=== PATIENT | female | born 1950 | race Caucasian/White ===

== ENCOUNTER 2025-04-26 12:18 | Outpatient (OUT) | payer MEDICARE, SELFPAY ==
--- OUTSIDE RECORDS SUMMARY | 2025-04-13 13:15 | XMS_ITS | Encounter Summary ---
Author Organization [facility] Address [address] [place] [address] Care Team Providers Care Event Planning Intern Name Role Phone ArielKyle DO Unavailable Demetrice Montgomery DO Unavailable [phone] Mandeep Nj MD Unavailable Riri Benavides MD Unavailable [phone] Felipe Lopez UNIT MA[employer]GER [employer] Unavailable Johnny Field DO Unavailable Tico Morley MD Primary Care Provider [phone] Reason for Visit * Reason Comments Gynecologic Exam Patient here for delroy araya. Denies any problems at this time. History of left breast cancer. Completed breast MRI in December- that was negative. Completed Dexa scan 03/25/24 moderate osteopenia. Colonoscopy 2016 Encounter Details Date Type Department Care Team (Late st Contact Info) Description 04/13/2025 1:15 PM EDT Office Visit [facility] [address] [address] [phone] Demetrice Montgomery DO [address] [phone] Encounter for gynecological examination (general) (routine) with abnormal findings (Primary Dx); Cystocele, midline; Osteopenia, unspecified location; Screening breast examination; History of breast cancer; Hx of hysterectomy for benign disease Social History Tobacco Use Types Packs/Day Years Used Date Smoking Tobacco: Former Cigarettes 0 09/02/1974 - 09/02/2018 Passive Smoke Exposure: Past Smokeless Tobacco: Never Comments:Last smoked : 3-[address] [facility] Moderate cigarette smoker 10-19 cigs / day Alcohol Use Standard Drinks/Week Comments Yes 2 (1 standard drink = 0.6 oz pure alcohol) caffeine intake: 2-3 cups per day ; tea 2 glasses AUDIT-C Answer Date Recorded Q1: How often do you have a drink containing alc ohol? 2-4 times a month 03/18/2024 Q2: How many drinks containi ng alcohol do you have on a typical day when you are drinking? 1 or 2 03/18/2024 Q3: How often do you have si x or more drinks on one occasion? Never 03/18/2024 PHQ-2 Answer Date Recorded Patient Health Questionnaire-2 Score 2 06/01/2024 Comments No Sex and Gender Information Value Date Recorded Sex Assigned at Not on file Legal Sex Female 7:34 PM EDT Gender Identity Not on file Sexual Orientation Not on file Occupation Industry Job Start Date Job End Date retired Not on file Not on file Not on file documented as of this encounter Last Filed Vital Signs Vital Sign Reading Time Taken Comments Blood Pressure 130/76 04/13/2025 1:10 PM EDT Pulse - - Temperature - - Respiratory Rate - - Oxygen Saturation - - Inhaled Oxygen Concentration - - Weight 79.8 kg (176 lb) 04/13/2025 1:10 PM EDT Height - - Body Mass Index 31.18 03/02/2025 10:41 AM EDT documented in this encounter Progress Notes * Demetrice Montgomery DO - 04/13/2025 1:15 PM EDT Images from the original note were not included. Demetrice Montgomery DO Obstetrics and Gynecology Name: Kinjal Penaloza Date/Time of Service:04/13/2025 1:49 PM :1950 Age: 74 y.o. Subjective Kinjal Penaloza is a 74 y.o. female who is here for a routine exam. Gynecologic Exam (Patient here for yearly. Denies any problems at this time. History of left breastcancer. Completed breast MRI in December- that was negative. Completed Dexa scan 03/25/24 moderate osteopenia. Colonoscopy 2016) Control Contraception: status post hysterectomy. LMP: No LMP recorded. Patient has had a hysterectomy. Last Mammogram Results for orders placed in visit on 07/02/24 Bilateral screening mammogram with tomosynthesis [facility] [address] [place] [address] Mammography Report Signed Patient: Kinjal Penaloza MR#: [id number] : 1950 Acct:[id number] Age/Sex: 74 / F ADM Date: 07/01/23 Loc: XT Room: Type: [facility]CR Attending Dr: Nikki Brunner MD Copies to: MD Riri Liang MD Jeffrey A Garman, Ordering Provider: Nikki Brunner MD Date of Service: 07/02/24 MM/MM screening mammo BI w/CAD: Hx of left breast cancer CLINICAL DATA: Screening for malignancy. History of left breast cancer. BILATERAL SCREENING MAMMOGRAMS - FULL FIELD DIGITAL WITH TOMOSYNTHESIS AND CAD Tomosynthesis craniocaudal and mediolateral oblique views of both breasts were obtained using low- dose digital technique. Comparison is made to prior studies from May 10, 2020 through July 01, 2023. This examination was reviewed with the aid of CAD. There are scattered fibroglandular densities. Postoperative scarring with BioZorb is again visualized at the central left breast at middle to posterior depth. There is associated calcification suggesting oil cyst. Additional benign calcifications are seen. There are no developing masses, typically malignant calcifications or architectural distortion. There has been no significant interval change. MM/MM screening mammo BI w/CAD Impression NO MAMMOGRAPHIC EVIDENCE OF MALIGNANCY. ROUTINE FOLLOW-UP IS RECOMMENDED IN ONE YEAR. RESULT CODE: 2 Benign Findings(s) DENSITY CODE: 2 (approximately 25-50% glandular) FOLLOW UP: 1YR The false-negative rate of mammography is approximately 10-percent. Management of a palpable abnormality must be based on clinical grounds. Patient was entered into a reminder system with a target due date for the next mammogram. Impression dictated by: Lakeshia Benítez M.D.07/02/2024 3:00 PM Dictation Location: [id number] Transcribed By: PWS 07/02/24 1500 Dictated By: Lakeshia Benítez MD 07/02/24 1454 Signed By: <Electronically signed by MD Lakeshia Benítez in OV> 07/02/24 1500 Current Outpatient Medications on File Prior to Visit Medication Sig Dispense Refill alendronate (Fosamax) 70 MG tablet 1 tablet Orally once a week, sit upright for 30 minutes after taking. 12 tablet 1 allopurinol (Zyloprim) 100 MG tablet Take 1 tablet (100 mg) by mouth Daily 90 tablet 1 atorvastatin (Lipitor) 20 MG tablet 1 tablet Orally at nite for 90 days 90 tablet 1 cholecalciferol (Vitamin D-3) 25 MCG (1000 UT) capsule Take 1,000 Units by mouth Daily Cyanocobalamin (Vitamin B12) 1000 MCG tablet controlled-release 1 (one) time each day at the same time fluocinonide (Lidex) 0.05 % external solution Apply to affected areas on the scalp, up to twice a day when flared, 30 day supply 60 mL 11 levothyroxine (Synthroid, Levoxyl) 50 MCG tablet 1 tablet Orally in am for 90 days 90 tablet 1 potassium bicarbonate (Effer-K) 25 MEQ effervescent tablet Take 1 tablet (25 mEq) by mouth every 12(twelve) hours 180 tablet 1 tamoxifen (Nolvadex) 20 MG chemo tablet 1 (one) time each day at the same time. venlafaxine (Effexor) 75 MG tablet Take 1 tablet (75 mg) by mouth 1 (one) time each day at the sametime 90 tablet 1 No current facility-administered medications on file prior to visit. Past Medical History: Diagnosis Date Adnexal mass 04/29/2023 Arthritis Basal cell carcinoma nasal tip Benign neoplasm of the colon requiring colectomy Breast cancer (HCC) left breast cancer (ER+/VT Her2 neg) Cataracts, bilateral Chicken pox COVID-19 06/2020 Female cystocele 03/01/2023 History of left breast cancer HLD (hyperlipidemia) 05/10/2023 Hx of hernia Hyperlipidemia Kidney stones Left breast mass 03/01/2023 Measles Mumps Post-op pain 05/22/2023 (HHS-HCC) 2 full term Preop examination 06/26/2023 Rheumatic fever Rheumatic heart disease S/P breast lumpectomy Stress fracture left knee Tonsillitis Vaginal infection Past Surgical History: Procedure Laterality Date APPENDECTOMY BILATERAL OOPHORECTOMY 2022 BREAST BIOPSY Left 12/2018 BREAST LUMPECTOMY Left 12/2018 CHOLECYSTECTOMY COLECTOMY 1998 [facility] COLONOSCOPY 2016 COLONOSCOPY 08/27/2014 dx 2 polyps COLONOSCOPY 06/07/2022 PCL HERNIA REPAIR umbilical hernia HYSTERECTOMY 1986 [facility]/BS KNEE ARTHROSCOPY W/ ACL RECONSTRUCTION Right 2016 KNEE ARTHROSCOPY W/ ACL RECONSTRUCTION Left 2020 MENISCECTOMY TONSILLECTOMY 195 Family History Problem Relation Name Age of Onset Pneumonia Mother Heart attack Father DOD Heart disease Father DOD Arthritis Father DOD Heart disease Brother Bro Sleep apnea Son Melanoma Neg Hx Social History Tobacco Use Smoking status: Former Current packs/day: 0.00 Types: Cigarettes Start date: 09/02/1974 Quit date: 09/02/2018 Years since quittin.6 Passive exposure: Past Smokeless tobacco: Never Tobacco comments: Last smoked : 3-6 months Moderate cigarette smoker 10-19 cigs / day Vaping Use Vaping status: Never Used Substance Use Topics Alcohol use: Yes Alcohol/week: 2.0 standard drinks of alcohol Types: 2 Glasses of wine per week Comment: caffeine intake: 2-3 cups per day ; tea 2 glasses Drug use: Never OB History Para Term AB Living 2 2 2 0 0 2 SAB IAB Ectopic Multiple Live Births # Outcome Date GA Lbr Isak/2nd Weight Sex Type Anes PTL Lv 2 Term 1 Term Allergies Allergen Reactions Sulfa Antibiotics Unknown and Rash Review of Systems Constitutional: Negative. Respiratory: Negative. Cardiovascular: Negative. Gastrointestinal: Negative. Musculoskeletal: Negative. Skin: Negative. Neurological: Negative. Endocrine: Negative. Objective BP 130/76 Wt 176 lb BMI 31.18 kg/m?? Body mass index is 31.18 kg/m??. Physical Exam Genitourinary: Urethral meatus normal. No lesions in the vagina. Genitourinary Comments: Valsalva revealed stage I-II cystocele Right Labia: No lesions. Left Labia: No lesions. Vaginal cuff intact. No vaginal discharge. Anterior vaginal prolapse present. Moderate vaginal atrophy present. Right Adnexa: not tender and no mass present. Left Adnexa: not tender and no mass present. Cervix is absent. Uterus is absent. No urethral stress urinary incontinence with cough stress test present. Bladder is not tender. Rectum: No rectovaginal septum nodularity. Breasts: Right: No mass, nipple discharge, skin change or tenderness. Left: No mass, nipple discharge, skin change or tenderness. HENT: Head: Normocephalic and atraumatic. Mouth/Throat: Mouth: Mucous membranes are moist. Cardiovascular: Rate and Rhythm: Normal rate and regular rhythm. Pulmonary: Effort: Pulmonary effort is normal. Breath sounds: Normal breath sounds. Abdominal: General: Bowel sounds are normal. Palpations: Abdomen is soft. Musculoskeletal: General: No tenderness. Cervical back: Neck supple. Neurological: Mental Status: She is alert and oriented to person, place, and time. Skin: General: Skin is warm and dry. Psychiatric: Mood and Affect: Mood normal. Vitals and nursing note reviewed. Assessment/Plan 1. Encounter for gynecological examination (general) (routine) with abnormal findings (Primary) Breast and pelvic exam performed. Discussed findings. Patient to contact the office with any changes to her gynecological condition. 2. Cystocele, midline Discussed findings, stable, continue to monitor. Stressed the importance of complete bladder emptying and avoiding long periods between voiding. Patient voiced understanding 3. Osteopenia, unspecified location Continue current treatment. Repeat DEXA scan next year 4. Screening breast examination Breast MRI completed recently with normal/benign findings 5. History of breast cancer 6. Hx of hysterectomy for benign disease ICD-10-CM 1. Encounter for gynecological examination (general) (routine) with abnormal findings Z01.411 2. Cystocele, midline N81.11 3. Osteopenia, unspecified location M85.80 4. Screening breast examination Z12.39 5. History of breast cancer Z85.3 6. Hx of hysterectomy for benign disease Z90.710 Follow up in about 1 year (around 04/13/2026) for Yearly. Demetrice Montgomery DO 04/13/2025 1:49 PM documented in this encounter Plan of Treatment Upcoming Encounters Date Type Department Care Team (Late st Contact Info) Description 05/12/2025 3:15 PM EDT Office Visit [facility] [address] [place] [phone] Deb Dwyer MD [address] [place] [address] 09/14/2025 1:15 PM EST Office Visit [facility] [address] [place] [phone] 12/28/2025 10:00 AM EDT Clinical Support [facility] [address] [place] [phone] Luann Gross, [facility] [address] [place] [address] 12/31/2025 10:00 AM EDT Office Visit [facility] [address] [place] [phone] Johnny Field DO [address] [place] [address] 04/18/2026 1:15 PM EDT Office Visit [facility] [address] [phone] Demetrice Montgomery DO [address] [phone] documented as of this encounter Visit Diagnoses Diagnosis Encounter for gynecological examination (general) (routine) with abnormal findings- Primary Cystocele, midline Osteopenia, unspecified location Screening breast examination Other screening breast examination History of breast cancer Personal history of malignant neoplasm of breast Hx of hysterectomy for benign disease documented in this encounter Care Teams Event Planning Intern Relationship Specialty Start Date End Date Kyle George DO [address] [place] [address] PCP - [employer] 09/02/22 Tico Morley MD [address] [place] [address] PCP - General Internal Medicine 04/01/25 Demetrice Montgomery DO [address] [place] [address] Referring Physician Obstetrics and Gynecology 04/30/23 Mandeep Nj MD [address] [place] [address] Referring Physician Ophthalmology 04/30/23 RIRI BENAVIDSE [address] [place] [address] Referring Physician General Surgery 04/30/23 Felipe Lopez NP [address] [place] [address] Referring Physician Internal Medicine 12/28/24 Johnny Field DO [address] [place] [address] Otolaryngology 12/28/24 documented as of this encounter
--- OUTSIDE RECORDS SUMMARY | 2025-04-23 23:59 | XMS_ITS | Continuity of Care Document ---
Author Organization [facility] Address [address] [place] [address] Care Team Providers Care Payroll And Benefits Specialist Name Role Phone ROBE LADD Primary Care Physician Encounter FT_ROSEANNE [id number] Date(s): 04/23/25 - 04/23/25 [facility] [address] [place] [address]- Encounter Diagnosis Kidney stones(Discharge Diagnosis) - 04/23/25 Abnormal urinalysis(Discharge Diagnosis) - 04/23/25 History of kidney stones(Discharge Diagnosis) - 04/23/25 Right flank pain(Discharge Diagnosis) - 04/23/25 Discharge Disposition: Home (Routine DC) Attending Physician: Adria WALLACE, Zhane Conway Referring Physician: ROBE LADD MD Encounter Type: Clinic Allergies, Adverse Reactions, Alerts Substance Criticality Severity Reaction Reaction Severity Status sulfa drugs Unknown Active Immunizations Given and Recorded Vaccine Date Status Refusal Reason influenza virus vaccine, inactivated 06/02/24 Edmond rded influenza virus vaccine, inactivated 06/19/23 Edmond rded influenza virus vaccine, inactivated 06/11/22 Edmond rded influenza virus vaccine, inactivated 05/29/21 Edmond rded influenza virus vaccine, inactivated 05/27/20 Edmond rded influenza virus vaccine, inactivated 05/22/17 Edmond rded influenza virus vaccine, inactivated 08/08/16 Edmond rded influenza virus vaccine, inactivated 07/04/15 Edmond rded RSV vaccine preF3, recombinant 08/09/23 Recorded SARS-CoV-2 (COVID-19) [id number] 07/06/22 Recorded SARS-CoV-2 (COVID-19) mRNA-1273 vaccine 01/01/22 R ecorded SARS-CoV-2 (COVID-19) mRNA-1273 vaccine 06/27/21 R ecorded SARS-CoV-2 (COVID-19) mRNA-1273 vaccine 11/24/20 R ecorded SARS-CoV-2 (COVID-19) mRNA-1273 vaccine 10/27/20 R ecorded diphtheria/pertussis, acel/tetanus adult 01/17/21 Recorded diphtheria/pertussis, acel/tetanus adult 07/18/11 Recorded zoster vaccine, inactivated 10/17/19 Recorded zoster vaccine, inactivated 07/07/19 Recorded pneumococcal 23-valent vaccine 08/09/16 Recorded pneumococcal 13-valent vaccine 08/15/15 Recorded influenza, unspecified formulation 06/22/15 Record ed Medications alendronate 70 mg Tab 70 mg = 1 tab(s), Oral, qWeek Start Date: 04/23/25 Status: Ordered Repeat number: 1 allopurinol 100 mg Tab 100 mg = 1 tab(s), Oral, Daily Start Date: 04/23/25 Status: Ordered Repeat number: 1 atorvastatin 20 mg Tab 20 mg = 1 tab(s), Oral, Daily Start Date: 04/23/25 Status: Ordered Repeat number: 1 fluocinonide topical 0.05% solution Start Date: 04/23/25 Status: Ordered Repeat number: 1 K-Lyte 25 mEq Tab-Eff 25 mEq = 1 tab(s), Oral, q12hr Start Date: 04/23/25 Status: Ordered Repeat number: 1 Synthroid 75 mcg Tab 75 mcg = 1 tab(s), Oral, Daily Start Date: 04/23/25 Status: Ordered Repeat number: 1 tamoxifen 20 mg Tab 20 mg = 1 tab(s), Oral, Daily Start Date: 04/23/25 Status: Ordered Repeat number: 1 venlafaxine 75 mg Cap-ER 75 mg = 1 cap(s), Oral, Daily Start Date: 04/23/25 Status: Ordered Repeat number: 1 Vitamin B12 Refills(s) 0 Start Date: 04/23/25 Status: Ordered Repeat number: 1 Vitamin D3 Refills(s) 0 Start Date: 04/23/25 Status: Ordered Repeat number: 1 Problem List Condition Confirmation Course Effective Dates Status Health St atus Informant Abnormal urinalysis Confirmed Active Arthritis Confirmed Active Glaucoma Confirmed Active Heart murmur Confirmed Active History of kidney stones Confirmed Active Hyperlipemia Confirmed Active Hypothyroid Confirmed Active Kidney stones Confirmed Active Breast cancer Confirmed Active Right flank pain Confirmed Active Procedures Procedure Date Related Diagnosis Body Site Status Appendectomy Completed Breast surgery Completed Cataract extraction Compl eted Cholecystectomy Completed Hysterectomy Completed Tonsillectomy Completed Social History Social History Type Response Smoking Status Former smoker, quit more than 30 days ago;Never; Type: Cigarettes entered on: 04/23/25 Sex Female Sex Representation Female (finding) Hospital Discharge Instructions Patient Education 04/23/2025 14:08:16 Laser Therapy for Kidney Stones, Care After Laser Therapy for Kidney Stones, Care After After laser therapy for kidney stones, it is common to have: ??? Pain. ??? A burning feeling when you pee (urinate). ??? Small amounts of blood in your pee (urine). ??? A need to pee a lot. ??? Parts of the kidney stone in your pee. ??? Mild discomfort in your back when you pee. You may have this if you had a small mesh tube (stent) placed during the procedure. Follow these instructions at home: Medicines ??? Take lbgc-sgu-ktdwagr and prescription medicines only as told by your health care provider. ??? If you were prescribed antibiotics, take them as told by your provider. Do not stop using the antibiotic even if you start to feel better. ??? Ask your provider if the medicine prescribed to you: ??? Requires you to avoid driving or using machinery. ??? Can cause constipation. You may need to take these actions to prevent or treat constipation: ??? Drink enough fluid to keep your pee pale yellow. ??? Take czyi-qag-nqsoltd or prescription medicines. ??? Eat foods that are high in fiber, such as beans, whole grains, and fresh fruits and vegetables. ??? Limit foods that are high in fat and processed sugars, such as fried or sweet foods. Activity ??? If you were given a sedative during the procedure, it can affect you for several hours. Do not drive or operate machinery until your provider says that it is safe. ??? Return to your normal activities as told by your provider. Ask your provider what activities are safe for you. General instructions ??? Your provider may recommend that you drink a lot of water for a few hours after your procedure.If you have heart or kidney disease, ask your provider how much you should drink. ??? You may be asked to strain your pee to collect any stone pieces that you pass. Your provider may have these pieces tested. ??? Do not take baths, swim, or use a hot tub until your provider approves. Ask your provider if you may take warm baths to soothe the burning. ??? Keep all follow-up visits. If you have a stent, you will need to go back to your provider to have it removed. Your provider may give you more instructions. Make sure you know what you can and cannot do. Contact a health care provider if: ??? You have pain or a burning feeling that lasts for more than 2 days. ??? You feel nauseous. ??? You vomit more and more often. ??? You have trouble peeing. ??? You have pain that gets worse or does not get better with medicine. ??? You have a fever or shaking chills. Get help right away if: ??? You cannot pee, even when your bladder feels full. ??? You faint. ??? You have chest pain, shortness of breath, or cough up blood. ??? You have: ??? Bright red blood or blood clots in your pee. ??? Severe pain or discomfort. ??? Pain in your abdomen. ??? Swelling in your legs. These symptoms may be an emergency. Get help right away. Call 911. ??? Do not wait to see if the symptoms will go away. ??? Do not drive yourself to the hospital. This information is not intended to replace advice given to you by your health care provider. Make sure you discuss any questions you have with your health care provider. Document Revised: 04/19/2023 Document Reviewed: 04/19/2023 [employer] Patient Education ?? 2023 [employer] 04/23/2025 14:08:15 Laser Therapy for Kidney Stones Laser Therapy for Kidney Stones Laser therapy for kidney stones is a procedure to break up rock-like masses that form inside the kidneys (kidney stones). It is done using a device that beams a strong light (laser) on the kidney stones. This breaks the stones up into small pieces. These small pieces may leave your body when you pee (urinate) or may be taken out during the procedure. You may need laser therapy if you have kidney stones that are painful or that are stopping you frombeing able to pee. Tell a health care provider about: ??? Any allergies you have. ??? All medicines you are taking, including vitamins, herbs, eye drops, creams, and lwks-swz-uelgtnz medicines. ??? Any problems you or family members have had with anesthesia. ??? Any bleeding problems you have. ??? Any surgeries you have had. ??? Any medical conditions you have. ??? Whether you are or may be . What are the risks? Your health care provider will talk with you about risks. These may include: ??? Infection. ??? Bleeding. ??? Allergic reactions to medicines. ??? Damage to: ??? The part of your body that drains pee (urine) from the bladder (urethra). ??? The bladder. ??? The tube that connects the bladder to the kidneys (ureter). ??? Urinary tract infection (UTI). ??? Urethral stricture. This is when the urethra is narrowed by scarring. ??? Trouble peeing. ??? Blockage of the kidney. This may be caused by a piece of kidney stone. What happens before the procedure? When to stop eating and drinking Follow instructions from your provider about what you may eat and drink. These may include: ??? 8 hours before the procedure ??? Stop eating most foods. Do not eat meat, fried foods, or fatty foods. ??? Eat only light foods, such as toast or crackers. ??? All liquids are okay except energy drinks and alcohol. ??? 6 hours before the procedure ??? Stop eating. ??? Drink only clear liquids, such as water, clear fruit juice, black coffee, plain tea, and sportsdrinks. ??? Do not drink energy drinks or alcohol. ??? 2 hours before the procedure ??? Stop drinking all liquids. ??? You may be allowed to take medicines with small sips of water. ??? If you do not follow your provider's instructions, your procedure may be delayed or canceled. Medicines ??? Ask your provider about: ??? Changing or stopping your regular medicines. These include any diabetes medicines or blood thinners you take. ??? Taking medicines such as aspirin and ibuprofen. These medicines can thin your blood. Do not take them unless your provider tells you to. ??? Taking lnqv-rwe-qeqwuom medicines, vitamins, herbs, and supplements. Tests ??? You may have a physical exam before the procedure. You may also have tests done. These may include: ??? Imaging tests. ??? Blood or pee tests. Surgery safety ??? Ask your provider: ??? How your surgery site will be marked. ??? What steps will be taken to help prevent infection. These steps may include: ??? Removing hair at the surgery site. ??? Washing skin with a soap that kills germs. ??? Taking antibiotics. General instructions ??? Do not use any products that contain nicotine or tobacco for at least 4 weeks before the procedure. These products include cigarettes, chewing tobacco, and vaping devices, such as e-cigarettes. If you need help quitting, ask your provider. ??? If you will be going home right after the procedure, plan to have a responsible adult: ??? Take you home from the hospital or clinic. You will not be allowed to drive. ??? Care for you for the time you are told. What happens during the procedure? An IV will be inserted into one of your veins. ??? You will be given: ??? A sedative. This helps you relax. ??? Anesthesia. This keeps you from feeling pain. It will make you fall asleep for surgery. ??? A tool with a camera on the end (ureteroscope) will be put into your urethra. It will be moved through your bladder to your kidney. It will send pictures to a screen in the operating room. This will show what parts of your kidney need to be treated. ??? A tube will be put through the ureteroscope. It will be moved into your kidney. ??? The laser device will be put into your kidney through the tube. The laser will be used to breakup the kidney stones. ??? A tool with a tiny wire basket may be put through the tube into your kidney. This can help remove the small pieces of the kidney stone. ??? A small mesh tube (stent) may be placed to allow your kidney to drain. ??? The tube and ureteroscope will be taken out at the end of the surgery. The procedure may vary among providers and hospitals. What happens after the procedure? Your blood pressure, heart rate, breathing rate, and blood oxygen level will be monitored untilyou leave the hospital or clinic. ??? If you had a stent placed, it may have a string that will be secured to your skin. This helps your provider remove the stent. ??? You may be given a strainer to collect any stone pieces that you pass in your pee. Your provider may have these tested. This information is not intended to replace advice given to you by your health care provider. Make sure you discuss any questions you have with your health care provider. Document Revised: 04/19/2023 Document Reviewed: 04/19/2023 [employer] Patient Education ?? 2023 [employer]. Follow Up Care 04/09/2025 14:55:41 With:Adria WALLACE, FITZ Avendano, KARRI Address: When: Unknown Patient Care team information Care Team Personnel Name: ROBE LADD MD Position: FT Physician Member Role: Primary Care Physician Address: [address] [place] [address]- Telecom: Care Team Related Persons Name: JAYLA BLOOM Name: JAYLA BLOOM Insurance Providers Guarantor name: Health Plan Information #: 1 Payer: [employer] Payer Identifier: [id number] Member Number: [id number] Group Number: [id number] Subscriber Identifier: [id number] Relationship to Subscriber: Self Coverage Type: MEDICARE Coverage Verification Date: 25 Telecom: [phone] Address: [facility] [id number] [place] [id number] [place] [address]
--- OUTSIDE RECORDS SUMMARY | 2025-04-26 12:23 | XMS_ITS | Encounter Summary ---
Author Organization [facility] Address [address] [place] [address] Care Team Providers Care Hard Candy Spinner Name Role Phone ArielKyle DO Unavailable [phone] Demetrice Montgomery DO Unavailable [phone] Mandeep Nj MD Unavailable Riri Benavides MD Unavailable [phone] Felipe Lopez SENIOR MEDICAL DIRECTOR Unavailable [phone] Johnny Field DO Unavailable [phone] Tico Morley MD Primary Care Provider [phone] Encounter Details Date Type Department Care Team (Latest Contact Info) Description 04/13/2025 Travel Social History Tobacco Use Types Packs/Day Years Used Date Smoking Tobacco: Former Cigarettes 0 09/02/1974 - 09/02/2018 Passive Smoke Exposure: Past Smokeless Tobacco: Never Comments:Last smoked : 3-6 m [facility] Moderate cigarette smoker 10-19 cigs / day [...] on file documented as of this encounter Plan of Treatment Upcoming Encounters Date Type Department Care Team (Late st Contact Info) Description 05/12/2025 3:15 PM EDT Office Visit [facility] [address] [place] [phone] Deb Dwyer MD [address] [place] [address] 09/14/2025 1:15 PM EST Office Visit [facility] [address] [place] [phone] 12/28/2025 10:00 AM EDT Clinical Support [facility] [address] [facility] [place] [phone] Luann Gross, [facility] [address] [address] 12/31/2025 10:00 AM EDT Office Visit [facility] [address] [place] [address] Johnny Field DO [address] [address] 04/18/2026 1:15 PM EDT Office Visit [facility] [address] [phone] Demetrice Montgomery DO [address] [address] documented as of this encounter Visit Diagnoses Not on filedocumented in this encounter Care Teams Hard Candy Spinner Relationship Specialty Start Date End Date Kyle George DO [address] [place] [address] PCP - [employer] 09/02/22 Tico Morley MD [address] [place] [address] PCP - General Internal Medicine 04/01/25 Demetrice Montgomery DO [address] [place] [address] Referring Physician Obstetrics and Gynecology 04/30/23 Mandeep Nj MD [address] [place] [address] Referring Physician Ophthalmology 04/30/23 RIRI BENAVIDES [address] [place] [address] Referring Physician General Surgery 04/30/23 Felipe Lopez SENIOR MEDICAL DIRECTOR [address] [place] [address] Referring Physician Internal Medicine 12/28/24 Johnny Field DO [address] [place] [address] Otolaryngology 12/28/24 documented as of this encounter
--- OUTSIDE RECORDS SUMMARY | 2025-04-26 12:23 | XMS_ITS | Encounter Summary ---
Author Organization [facility] Address [address] [place] [address] Care Team Providers Care Climatology Teacher Name Role Phone Kyle George DO Unavailable [phone] Kyle George DO Primary Care Provider [phone] Kyle George DO Primary Care Provider [phone] Demetrice Montgomery DO Unavailable [phone] Mandeep Nj MD Unavailable Riri Benavides MD Unavailable [phone] Felipe Lopez COMPUTER NETWORKING INSTRUCTOR ADJUNCT Unavailable Johnny Fiedl DO Unavailable Tico Morley MD Primary Care Provider Encounter Details Date Type Department Care Team (Late st Contact Info) Description 11/22/2021 Abstract [facility] [place] [facility] [address] [place] [address] Luann Gross, [facility] [address] [place] [address] Social History Tobacco Use Types Packs/Day Years Used Date Smoking Tobacco: Never Assessed Comments Unknown Sex and Gender Information Value Date Recorded Sex Assigned at Not on file Legal Sex Female 7:34 PM EDT Gender Identity Not on file Sexual Orientation Not on file documented as of this encounter Plan of Treatment Upcoming Encounters Date Type Department Care Team (Late st Contact Info) Description 05/12/2025 3:15 PM EDT Office Visit [facility] [place] [facility] [address] [place] [phone] Deb Dwyer MD [address] [place] [address] 09/14/2025 1:15 PM EST Office Visit [facility] [place] [facility] [address] [place] [phone] 12/28/2025 10:00 AM EDT Clinical Support [facility] [place] [facility] [address] [place] [phone] Luann Gross, [facility] [address] [place] [address] 12/31/2025 10:00 AM EDT Office Visit [facility] [place] [facility] [address] [place] [phone] Johnny Field DO [address] [place] [address] 04/18/2026 1:15 PM EDT Office Visit [facility] [address] [phone] Demetrice Montgomery DO [address] [address] documented as of this encounter Visit Diagnoses Not on filedocumented in this encounter Care Teams Climatology Teacher Relationship Specialty Start Date End Date Kyle George DO [address] [place] [address] PCP - [employer] 09/02/22 Kyle George DO [address] [place] [address] PCP - General Internal Medicine 03/01/23 04/23/23 Kyle George DO [address] [place] [address] PCP - General Internal Medicine 04/24/23 03/31/25 Tico Morley MD [address] [place] [address] PCP - General Internal Medicine 04/01/25 Demetrice Montgomery DO [address] [place] [address] Referring Physician Obstetrics and Gynecology 04/30/23 Mandeep Nj MD [address] [place] [address] Referring Physician Ophthalmology 04/30/23 RIRI [address]NAVIDES [address] [place] [address] Referring Physician General Surgery 04/30/23 Felipe Lopez COMPUTER NETWORKING INSTRUCTOR ADJUNCT [address] [place] [address] Referring Physician Internal Medicine 12/28/24 Johnny Field DO [address] [place] [address] Otolaryngology 12/28/24 documented as of this encounter
--- OUTSIDE RECORDS SUMMARY | 2025-04-26 12:23 | XMS_ITS | Encounter Summary ---
Author Organization [facility] Address [address] [facility] [place] [address] Care Team Providers Care Inspector Radar And Electronics Name Role Phone Kyle George DO Unavailable [phone] Kyle George DO Primary Care Provider Demetrice Montgomery DO Unavailable [phone] Mandeep Nj MD Unavailable Riri Benavides MD Unavailable [phone] Felipe Lopez SIGN SHOP SUPERVISOR Unavailable Johnny Field DO Unavailable [phone] Tioc Morley MD Primary Care Provider [phone] Encounter Details Date Type Department Care Team (Late st Contact Info) Description 07/03/2023 [facility] [address] [facility] [address] [place] [phone] A, Unknown Practice [address] [place] [phone] Social History Tobacco Use Types Packs/Day Years Used Date Smoking Tobacco: Former Cigarettes 0 09/02/1974 - 09/02/2017 Smokeless Tobacco: Never Comments:Last smoked : [facility] Moderate cigarette smoker 10-19 cigs / day Alcohol Use Standard Drinks/Week Comments Yes 1 (1 standard drink = 0.6 oz pure alcohol) caffeine intake: 2-3 cups per day ; tea 2 glasses AUDIT-C Answer Date Recorded Q1: How often do you have a drink containing alc ohol? 2-3 times a week 04/30/2023 Average Number of Drinks Not on file 023 Q3: How often do you have si x or more drinks on one occasion? Never 04/30/2023 PHQ-2 Answer Date Recorded Patient Health Questionnaire-2 Score 0 04/30/2023 Comments No Sex and Gender Information Value [...] Dermatology [address] [place] [address] Deb Dwyer MD [address] [place] [address] 09/14/2025 1:15 PM EST Office Visit [facility] [address] [place] [address] 12/28/2025 10:00 AM EDT Clinical Support [facility] [address] [facility] [place] [address] Luann Gross, [facility] [address] [place] [address] 12/31/2025 10:00 AM EDT Office Visit [facility] [address] [place] [phone] Johnny Field DO [address] [place] [address] 04/18/2026 1:15 PM EDT Office Visit [facility] [address] [phone] Demetrice Montgomery DO [address] [address] documented as of this encounter Procedures Procedure Name Priority Date/Time Associated Diagnosis Comments MAMMOGRAM, BILATERAL, SCREEN:* Routine 07/01/2023 1:39 PM EDT documented in this encounter Results * MAMMOGRAM, BILATERAL, SCREEN:* (07/01/2023 1:39 PM EDT) Anatomical Region Laterality Modality Radiographic Yvette ging us Unknown Practice A IMG XR PROCEDURES Final Resul t documented in this encounter Visit Diagnoses Not on filedocumented in this encounter Care Teams Inspector Radar And Electronics Relationship Specialty Start Date End Date Kyle George DO [address] [place] [address] PCP - [employer] 09/02/22 Kyle George DO [address] [place] [address] PCP - General Internal Medicine 04/24/23 03/31/25 Tico Morley MD [address] [place] [address] PCP - General Internal Medicine 04/01/25 Demetrice Montgomery DO [address] [place] [address] Referring Physician Obstetrics and Gynecology 04/30/23 Mandeep Nj MD [address] [place] [address] Referring Physician Ophthalmology 04/30/23 [place] [address] Referring Physician General Surgery 04/30/23 Felipe Lopez NP [address] [place] [address] Referring Physician Internal Medicine 12/28/24 Johnny Field DO [address] [place] [address] Otolaryngology 12/28/24 documented as of this encounter
--- OUTSIDE RECORDS SUMMARY | 2025-04-26 12:23 | XMS_ITS | Encounter Summary ---
Author Organization [facility] Address [address] [place] [address] Care Team Providers Care Operations Team Leader Name Role Phone Kyle George DO Unavailable [phone] Kyle George DO Primary Care Provider Demetrice Montgomery DO Unavailable [phone] Mandeep Nj MD Unavailable Riri Benavides MD Unavailable [phone] Felipe Lopez MASH FILTER CLOTH CHANGER Unavailable [phone] Johnny Field DO Unavailable [phone] Tico Morley MD Primary Care Provider [phone] Encounter Details Date Type Department Care Team (Late st Contact Info) Description 05/13/2023 Clinisync Result Encounter [facility] External Department Unsolicited Provider, Generic External Data Social History Tobacco Use Types Packs/Day Years Used Date Smoking Tobacco: Former Cigarettes 0 09/02/1974 - 09/02/2017 Smokeless Tobacco: Never Comments:Last smoked : 3-6 m [facility] Moderate cigarette smoker 10-19 cigs / day [...] file Not on file Not on file COVID-19 Exposure Response Date Recorded In the last 10 days, have yo u been in contact with someone who was confirmed or suspected to have Coronavirus/COVID-19? No / Unsure 04/23/2023 1:21 PM EDT documented as of this encounter Plan of Treatment Upcoming Encounters Date Type Department Care Team (Late st Contact Info) Description 05/12/2025 3:15 PM EDT Office Visit [facility] [address] [place] [address] Deb Dwyer MD [address] [place] [address] 09/14/2025 1:15 PM EST Office Visit [facility] [address] [place] [phone] 12/28/2025 10:00 AM EDT Clinical Support [facility] [address] [place] [address] Luann Gross, [facility] [address] [place] [address] 12/31/2025 10:00 AM EDT Office Visit [facility] [address] [place] [phone] Johnny Field DO [address] [place] [address] 04/18/2026 1:15 PM EDT Office Visit [facility] [address] [phone] Demetrice Montgomery DO [address] [phone] documented as of this encounter Procedures Procedure Name Priority Date/Time Associated Diagnosis Comments XR CHEST 2V FRONTAL/LAT 05/13/2023 2:01 PM EDT documented in this encounter Results * XR CHEST 2V FRONTAL/LAT (05/13/2023 2:01 PM EDT) Anatomical Region Laterality Modality Other 05/13/2023 2:01 PM EDT Narrative 05/14/2023 1:56 PM EDT * * *Final Report* * * DATE OF EXAM: May 13 2023 2:01PM LNX [id number] - XR CHEST 2V FRONTAL/LAT / PROCEDURE REASON: multiple diagnoses * * * * Physician Interpretation * * * * EXAMINATION: CHEST RADIOGRAPH (2 VIEW FRONTAL and LATERAL) CLINICAL HISTORY: Adnexal mass Preop examination MQ: XC2_6 EXAM DATE/TIME: 05/13/2023 2:01 PM COMPARISON: No relevant prior studies available. RESULT: Lines, tubes, and devices: None. Lungs and pleura: No consolidation. The pulmonary vasculature is within normal limits. Area of atelectasis/scarring at the left lung base is noted. Surgical clips are present within the left chest wall. Cardiomediastinal silhouette: Normal cardiomediastinal silhouette. Bones and soft tissues: Moderate degenerative change within the thoracic spine is noted. IMPRESSION: No acute radiographic abnormality. Technical Service Rep: PSCB Transcribe Date/Time: May 14 2023 1:50P Dictated by : LIOR CHAVEZ MD This examination was interpreted and the report reviewed and electronically signed by: LIOR CHAVEZ MD on May 14 2023 1:54PM EST [id number]^ACN Procedure Note Radiology, Radiologist, - 05/15/2023 * * *Final Report* * * DATE OF EXAM: May 13 2023 2:01PM LNX 5291 - XR CHEST 2V FRONTAL/LAT / PROCEDURE REASON: multiple diagnoses * * * * Physician Interpretation * * * * EXAMINATION: CHEST RADIOGRAPH (2 VIEW FRONTAL and LATERAL) CLINICAL HISTORY: Adnexal mass Preop examination MQ: XC2_6 EXAM DATE/TIME: 05/13/2023 2:01 PM COMPARISON: No relevant prior studies available. RESULT: Lines, tubes, and devices: None. Lungs and pleura: No consolidation. The pulmonary vasculature is within normal limits. Area of atelectasis/scarring at the left lung base is noted. Surgical clips are present within the left chest wall. Cardiomediastinal silhouette: Normal cardiomediastinal silhouette. Bones and soft tissues: Moderate degenerative change within the thoracic spine is noted. IMPRESSION: No acute radiographic abnormality. Technical Service Rep: DESHAUN Transcribe Date/Time: May 14 2023 1:50P Dictated by : LIOR CHAVEZ MD This examination was interpreted and the report reviewed and electronically signed by: LIOR CHAVEZ MD on May 14 2023 1:54PM EST [id number]^SI^ACN us Generic External Data Provider [facility] Final Result documented in this encounter Visit Diagnoses Not on filedocumented in this encounter Care Teams Operations Team Leader Relationship Specialty Start Date End Date Kyle George DO [address] [place] [address] PCP - [employer] 09/02/22 Kyle George DO [address] [place] [address] PCP - General Internal Medicine 04/24/23 03/31/25 Tico Morley MD [address] [place] [address] PCP - General Internal Medicine 04/01/25 Demetrice Montgomery DO [address] [place] [address] Referring Physician Obstetrics and Gynecology 04/30/23 Mandeep Nj MD [address] [place] [address] Referring Physician Ophthalmology 04/30/23 RIRI BENAVIDES [address] [place] [address] Referring Physician General Surgery 04/30/23 Felipe Lopez NP [address] [place] [address] Referring Physician Internal Medicine 12/28/24 Johnny Field DO [address] [place] [address] Otolaryngology 12/28/24 documented as of this encounter
--- OUTSIDE RECORDS SUMMARY | 2025-04-26 12:23 | XMS_ITS | Encounter Summary ---
Author Organization [facility] Address [address] [place] [address] Care Team Providers Care Dispute Specialist Name Role Phone Kyle George DO Unavailable [phone] Kyle George DO Primary Care Provider [phone] Demetrice Montgomery DO Unavailable [phone] Duy Solares MD Unavailable Riri Benavides MD Unavailable [phone] Felipe Lopez ADJUSTER LEADER Unavailable [phone] Johnny Field DO Unavailable [phone] Tico Morley MD Primary Care Provider [phone] Encounter Details Date Type Department Care Team (Late st Contact Info) Description 05/13/2023 Clinisync Result Encounter [facility] External Department Unsolicited Provider, Generic External Data Social History Tobacco Use Types Packs/Day Years Used Date Smoking Tobacco: Former Cigarettes 0 09/02/1974 - 09/02/2017 Smokeless Tobacco: Never Comments:Last smoked : 3-6 m [facility] Moderate cigarette smoker 10-19 cigs / day [...] Dermatology [address] [place] [address] Deb Dwyer MD [address] [place] [address] 09/14/2025 1:15 PM EST Office Visit [facility] [address] [place] [phone] 12/28/2025 10:00 AM EDT Clinical Support [facility] [address] [place] [address] Luann Gross, [facility] [address] [place] [address] 12/31/2025 10:00 AM EDT Office Visit [facility] [address] [place] [phone] Johnny Field DO [address] [place] [address] 04/18/2026 1:15 PM EDT Office Visit [facility] [address] [phone] Demetrice Montgomery DO [address] [phone] documented as of this encounter Procedures Procedure Name Priority Date/Time Associated Diagnosis Comments ECG01 05/13/2023 12:51 PM EDT documented in this encounter Results * ECG01 (05/13/2023 12:51 PM EDT) Anatomical Region Laterality Modality Other 05/13/2023 12:5 1 PM EDT Narrative 05/18/2023 8:55 PM EDT Ventricular Rate : 77 BPM Atrial Rate : 77 BPM P-R Interval : 118 ms QRS Duration : 82 ms Q-T Interval : 380 ms QTC Calculation(Bazett) : 430 ms Calculated P [place] : 51 degrees Calculated R [place] : 30 degrees Calculated T [place] : 57 degrees NORMAL SINUS RHYTHM NORMAL ECG Confirmed by Rosario Schuler M.D. ([id number]) on 05/18/2023 8:55:24 PM NAME : MAURICE BLOOM PID : [id number] : 1950 Gender : Female Race : ORD : Procedure Date : May 13 2023 12:51:48 Edit Date : May 18 2023 20:55:25 Diagnosis: NORMAL SINUS RHYTHM NORMAL ECG Confirmed by Rosario Schuler M.D. ([id number]) on 05/18/2023 8:55:24 PM Test Reason : PREOP Location : 545 : [facility] Overread By : Rosario Schuler M.D. Edited By : Rosario Schuler M.D. Referred By : DUY SOLARES Acquired by : SB, Procedure Note Radiology, Radiologist, - 05/20/2023 Ventricular Rate : 77 BPM Atrial Rate : 77 BPM P-R Interval : 118 ms QRS Duration : 82 ms Q-T Interval : 380 ms QTC Calculation(Bazett) : 430 ms Calculated P [place] : 51 degrees Calculated R [place] : 30 degrees Calculated T [place] : 57 degrees NORMAL SINUS RHYTHM NORMAL ECG Confirmed by Rosario Schuler M.D. ([id number]) on 05/18/2023 8:55:24 PM NAME : MAURICE BLOOM PID : [id number] : 1950 Gender : Female Race : ORD : Procedure Date : May 13 2023 12:51:48 Edit Date : May 18 2023 20:55:25 Diagnosis: NORMAL SINUS RHYTHM NORMAL ECG Confirmed by Rosario Schuler M.D. ([id number]) on 05/18/2023 8:55:24 PM Test Reason : PREOP Location : 54 : [facility] Overread By : Rosario Schuler M.D. Edited By : Rosario Schuler M.D. Referred By : DUY SOLARES Acquired by : GEMMA, us Generic External Data Provider [facility] Final Result documented in this encounter Visit Diagnoses Not on filedocumented in this encounter Care Teams Dispute Specialist Relationship Specialty Start Date End Date Kyle George DO [address] [facility] [address] [place] [address] PCP - [employer] 09/02/22 Kyle George DO [address] [address] PCP - General Internal Medicine 04/24/23 03/31/25 Tico Morley MD [address] [place] [address] PCP - General Internal Medicine 04/01/25 Demetrice Montgomery DO [address] [place] [address] Referring Physician Obstetrics and Gynecology 04/30/23 Duy Solares MD [address] [place], [place] [address] Referring Physician Ophthalmology 04/30/23 [address] [place] [address] Referring Physician General Surgery 04/30/23 Felipe Lopez, ARTEM [address] [place] [address] Referring Physician Internal Medicine 12/28/24 Johnny Field DO [address] [place] [address] Otolaryngology 12/28/24 documented as of this encounter
--- OUTSIDE RECORDS SUMMARY | 2025-04-26 12:23 | XMS_ITS | Encounter Summary ---
Author Organization [facility] Address [address] [place] [address] Care Team Providers Care Bowling Ball Weigher And Packer Name Role Phone Kyle George DO Unavailable Kyle Geogre DO Primary Care Provider Demetrice Montgomery DO Unavailable [phone] Mandeep Nj MD Unavailable Riri Benavides MD Unavailable [phone] Felipe Lopez MICROSTRATEGY DEVELOPER Unavailable [phone] Johnny Field DO Unavailable [phone] Tico Morley MD Primary Care Provider Encounter Details Date Type Department Care Team (Late st Contact Info) Description 07/01/2023 External Result Encounter [facility] External Department Unsolicited Nikki Brunner MD [address] [place] [address] Social History Tobacco Use Types Packs/Day Years Used Date Smoking Tobacco: Former Cigarettes 0 09/02/1974 - 09/02/2017 Smokeless Tobacco: Never Comments:Last smoked : 3-6 m [facility] Moderate cigarette smoker 10-19 cigs / day [...] Dermatology [address] [place] [address] Deb Dwyer MD [address] [place] [address] 09/14/2025 1:15 PM EST Office Visit [facility] [address] [place] [address] 12/28/2025 10:00 AM EDT Clinical Support [facility] [address] [place] [phone] Luann Gross, [facility] [address] [place] [address] 12/31/2025 10:00 AM EDT Office Visit [facility] [address] [place] [address] Johnny Field DO [address] [place] [address] 04/18/2026 1:15 PM EDT Office Visit [facility] [address] [phone] Demetrice Montgomery, [address] [address] documented as of this encounter Procedures Procedure Name Priority Date/Time Associated Diagnosis Comments BI MAMMOGRAM SCREENING BILATERAL 07/01/2023 3:01 PM EDT documented in this encounter Results * Bilateral screening mammogram (07/01/2023 3:01 PM EDT) Anatomical Region Laterality Modality Breast Bilateral Mammography 07/01/2023 3:01 PM EDT Impressions 08/07/2023 1:32 PM EST NO MAMMOGRAPHIC EVIDENCE OF MALIGNANCY. ROUTINE FOLLOW-UP IS RECOMMENDED IN ONE YEAR. RESULT CODE: 1 Negative DENSITY CODE: 3 (approximately 51-75% glandular) FOLLOW UP: 1YR The false-negative rate of mammography is approximately 10-percent. Management of a palpable abnormality must be based on clinical grounds. Patient was entered into a reminder system with a target due date for the next mammogram. Impression dictated by: Hebert Morris Jr., D.ONehemias07/01/2023 3:02 PM Dictation Location: [facility] Transcribed By: [facility] 07/01/23 1502 Dictated By: Hebert Morris Jr, DO 07/01/23 1501 Signed By: <Electronically signed by Hebert Morris Jr, DO in OV> 07/01/23 1502 Narrative 08/07/2023 1:32 PM EST [facility] Main [address] [address] Mammography Report Signed Patient: Kinjal Penaloza MR#: [id number] : 1950 Acct:[id number] Age/Sex: 73 / F ADM Date: 07/01/23 Loc: XT Room: Type: [facility] RCR Attending Dr: Nikki Brunner MD Copies to: MD Riri Liang MD Jeffrey A Garman, DO Ordering Provider: Nikki Brunner MD Date of Service: 07/01/23 MM/MM screening mammo BI w/CAD: Hx of left breast cancer CLINICAL DATA: Screening for malignancy. History of left-sided breast cancer status post lumpectomy in 2019 with radiation. SCREENING MAMMOGRAM - FULL FIELD DIGITAL WITH TOMOSYNTHESIS AND CAD COMPARISON:Mammograms dating back to 2019 Tomosynthesis craniocaudal and mediolateral oblique views of both breasts were obtained using low- dose digital technique. This examination was reviewed with the aid of CAD. The breast parenchyma is heterogeneously dense. There are no dominant masses, typically malignant calcifications or architectural distortion. Stable posttreatment changes left breast. MM/MM screening mammo BI w/CAD Procedure Note Radiology, Radiologist, MD - 08/07/2023 [facility] Main [place] [address] [place] [address] Mammography Report Signed Patient: Kinjal Penaloza EMR#: [id number] : 1950Acct:[id number] Age/Sex: 73 / FADM Date: 07/01/23 Loc: XT Room:Type: [facility] RCR Attending Dr: Nikki Brunner MD Copies to: MD Riri Liang MD Jeffrey A Garman, DO Ordering Provider: Nikki Brunner MD Date of Service: 07/01/23 MM/MM screening mammo BI w/CAD: Hx of leftbreast cancer CLINICAL DATA: Screening for malignancy. History of left-sided breastcancer status post lumpectomy in 2019 with radiation. SCREENING MAMMOGRAM - FULL FIELD DIGITAL WITH TOMOSYNTHESIS AND CAD COMPARISON:Mammograms dating back to 2019 Tomosynthesis craniocaudal and mediolateral oblique views of both breastswere obtained using low- dose digital technique. This examination was reviewed with the aid ofCAD. The breast parenchyma is heterogeneously dense. There are no dominantmasses, typically malignant calcifications or architectural distortion. Stable posttreatment changesleft breast. MM/MM screening mammo BI w/CAD IMPRESSION: NO MAMMOGRAPHIC EVIDENCE OF MALIGNANCY. ROUTINE FOLLOW-UP IS RECOMMENDED IN ONE YEAR. RESULT CODE: 1 Negative DENSITY CODE: 3 (approximately 51-75% glandular) FOLLOW UP: 1YR The false-negative rate of mammography is approximately 10-percent. Management of a palpable abnormality must be based on clinical grounds. Patient was entered into a reminder system with a target due date for thenext mammogram. Impression dictated by: Hebert oMrris Jr., D.ONehemias07/01/2023 3:02 PM Dictation Location: [facility] Transcribed By: [facility] 07/01/23 1502 Dictated By: Hebert Morris Jr, DO 07/01/23 1501 Signed By: <Electronically signed by Hebert Morris Jr, DO inOV> 07/01/23 1502 us Nikki Brunner MD IMG BI PROCEDURES Final Result documented in this encounter Visit Diagnoses Not on filedocumented in this encounter Care Teams Bowling Ball Weigher And Packer Relationship Specialty Start Date End Date Kyle George DO [address] [place] [address] PCP - [employer] 09/02/22 Kyle George DO [address] [place] [address] PCP - General Internal Medicine 04/24/23 03/31/25 Tico Morley MD [address] [place] [address] PCP - General Internal Medicine 04/01/25 Demetrice Montgomery DO [address] [place] [address] Referring Physician Obstetrics and Gynecology 04/30/23 Mandeep Nj MD [address] [place], [place] [phone] Referring Physician Ophthalmology 04/30/23 RIRI BENA[address]IDES [address] [place] [address] Referring Physician General Surgery 04/30/23 Felipe Lopez NP [address] [place] [address] Referring Physician Internal Medicine 12/28/24 Johnny Field DO [address] [place] [address] Otolaryngology 12/28/24 documented as of this encounter
--- OUTSIDE RECORDS SUMMARY | 2025-04-26 12:23 | XMS_ITS | Clinical Summary ---
Author Organization [facility] Address [address] [place], [place] [address] Care Team Providers Care Health Care Marketing Manager Name Role Phone Demetrice Montgomery DO Unavailable [phone] Kyle George DO Primary Care Provider + Allergies Active Allergy Reactions Criticality Noted Date Comments Sulfa (Sulfonamide Antibiotics) Rash 04/02 Medications atorvastatin (LIPITOR) 20 mg tablet 3 Active allopurinol (ZYLOPRIM) 100 mg tablet 1 (one) time each day at the same time. 9 Active levothyroxine (SYNTHROID) 50 mcg tablet 1 tablet Orally in am for 90 days 2 Active Potassium Bicarb-Citric Acid (EFFER-K) 25 mEq disintegrating tablet every 12 hours. Active tamoxifen (NOLVADEX) 20 mg tablet 1 (one) time each day at the same time. 9 Active venlafaxine ER (EFFEXOR XR) 75 mg 24 hr capsule 3 Active alendronate (FOSAMAX) 70 mg tablet 3 Active cholecalciferol (VITAMIN D) 1,000 unit tab tablet Take 1,000 Units by mouth once daily. Active Vitamin E, dl, acetate, (VITAMIN E) 400 unit capsule Take 400 Units by mouth once daily. Active cyanocobalamin (VITAMIN B-12) 100 mcg tab Take 100 mcg by mouth once daily. Active Active Problems Problem Noted Date Diagnosed Date Preop examination 06/26/2023 Post-op pain 05/22/2023 Class 1 obesity with body ma ss index (BMI) of 32.0 to 32.9 in adult 05/13/2023 Assessment & Plan (05/13/2023 12:46 PM EDT): Assessment: diet and exercise encouraged Breast cancer 05/10/2023 Hypothyroidism 05/10/2023 Assessment & Plan (05/13/2023 12:45 PM EDT): Assessment: managed with med, stable Follows up with PCP Kidney stone 05/10/2023 Assessment & Plan (05/13/2023 12:45 PM EDT): Assessment: stable and asymptomatic HLD (hyperlipidemia) 05/10/2023 Assessment & Plan (05/13/2023 12:45 PM EDT): Assessment: managed with med, stable Follows up with PCP Adnexal mass 04/29/2023 Social History Tobacco Use Types Packs/Day Years Used Date Smoking Tobacco: Former Cigarettes 0.5 30 0 09/02/1988 - 09/02/2018 Smokeless Tobacco: Never Tobacco Cessation:Counseling Given: Not Answered Alcohol Use Standard Drinks/Week Comments Yes 0 (1 standard drink = 0.6 oz pur e alcohol) 2 drinks on weekends PHQ-2 Answer Date Recorded PHQ-2 score 0 06/02/2023 Area Deprivation Index Answer Date Edmond rded National Score (1-100), lower number is lower ri sk 47 04/17/2023 State Score (1-10), lower number is lower risk 2 04/17/2023 Data from: https://www.neighborhoodatlas.medicine.[facility].edu/. Last address used for calculation [address] 04/17/2023 Comments No Sex and Gender Information Value Date Recorded Sex Assigned at Not on file Legal Sex Female 4:03 PM EDT Gender Identity Not on file Sexual Orientation Not on file Last Filed Vital Signs Vital Sign Reading Time Taken Comments Blood Pressure 144/66 06/03/2023 11:37 AM EDT Pulse 89 06/03/2023 11:37 AM EDT Temperature 36.2 C (97.2 F) 06/03/2023 11:37 AM EDT Respiratory Rate 15 06/03/2023 11:3 7 AM EDT Oxygen Saturation 95% 05/27/2023 5:1 9 AM EDT Inhaled Oxygen Concentration - - Weight 83.6 kg (184 lb 6.4 oz) 06/03/2023 11:37 AM EDT Height 157.1 cm (5' 1.85 ) 06/03/2023 1 1:37 AM EDT Verified with SG Body Mass Index 33.89 06/03/2023 11:37 AM EDT Plan of Treatment Health Maintenance Due Date Last Done Comments Annual PCP Team Chronic Dise ase Visit 1968 Anxiety Screening 1968 Depression Screening 1968 Hepatitis C Screening 1968 CT Colonography 1995 Cologuard (FIT-DNA) 1995 Colonoscopy 1995 Colorectal Cancer Screening 1995 Fecal Occult Blood 1995 Sigmoidoscopy 1995 Bone Density Screening 2015 Mammogram Screening 06/11/2023 06/11/2022 Advance Directive Discussion 09/02/2024 Medicare Advantage Annual We llness Visit 09/02/2024 Influenza Vaccine (#1) 2025 , 05/29/2021, 05/27/2020, Additional history exists RSV Vaccine (1 - 1-dose 75+ series) 2025 Diabetes Screening 05/26/2026 05/26/2023, 0 05/25/2023, 05/24/2023, Additional history exists Lipid Screening 04/19/2028 04/19/2023 DTaP,Tdap,Td Vaccine (3 - Td or Tdap) 01/17/2031 01/17/2021, 07/18/2011 Pneumococcal Vaccine: 50+ Completed 08/09/2016, Shingrix Vaccine Completed 10/17/2019, 07/07/2019 Procedures Procedure Name Priority Date/Time Associated Diagnosis Comments COMPREHENSIVE METABOLIC PANEL Routine 05/26/2023 10:02 PM EDT from Last 3 Months or Most Recently Relevant to Health Maintenance Results * (ABNORMAL) COMP METABOLIC PANEL (05/26/2023 10:02 PM EDT) Pathologist [facility] Protein, Total 5.2(L) 6.3 - 8.0 g/dL 05/27/2023 12:07 AM [facility] Albumin 3.1(L) 3.9 - 4.9 g/dL 05/27/2023 12:07 AM [facility] Calcium, Total 8.4(L) 8.5 - 10.2 mg/dL 05/27/2023 12:07 AM [facility] Bilirubin, Total 0.3 0.2 - 1.3 mg/dL 05/27/2023 12:07 AM [facility] Alkaline Phosphatase 44 34 - 123 U/L 05/27/2023 12:07 AM [facility] Comment:Results may be false ly decreased due to interference from hemolysis. Suggest reorder as clinically indicated. AST 32 13 - 35 U/L 05/27/2023 12:07 AM [facility] Comment:Results may be false ly increased due to interference from hemolysis. Suggest reorder as clinically indicated. ALT 19 7 - 38 U/L 05/27/2023 12:07 AM [facility] Comment:Results may be false ly increased due to interference from hemolysis. Suggest reorder as clinically indicated. Glucose 130(H) 74 - 99 mg/dL 05/27/2023 12:07 AM [facility] Comment: The [place] Diabetes Association (ADA) provides guidance for cutoff values for fasting glucose and random glucose. The ADA defines fasting as no caloric intake for at least 8 hours. Fasting plasma glucose results between 100 to 125 mg/dL indicate increased risk for diabetes (prediabetes). Fasting plasma glucose results greater than or equal to 126 mg/dL meet the criteria for diagnosis of diabetes. In the absence of unequivocal hyperglycemia, results should be confirmed by repeat testing. In a patient with classic symptoms of hyperglycemia or hyperglycemic crisis, random plasma glucose results greater than or equal to 200 mg/dL meet the criteria for diagnosis of diabetes. Reference: Standards of Medical Care in Diabetes 2016, [place] Diabetes [employer]. Diabetes Care. 2016.39(Suppl 1). BUN 8 7 - 21 mg/dL 05/27/2023 12:07 AM [facility] Creatinine 0.75 0.58 - 0.96 mg/dL 05/27/2023 12:[address] [facility] Sodium 136 136 - 144 mmol/L 05/27/2023 12:[address] [facility] Potassium 05/27/2023 12:[address] [facility] Comment:Unable to assay due to interference from hemolysis. Suggest reorder as clinically indicated. Chloride 102 97 - 105 mmol/L 05/27/2023 12:[address] [facility] CO2 20(L) 22 - 30 mmol/L 05/27/2023 12:[address] [facility] Anion Gap 14 9 - 18 mmol/L 05/27/2023 12:[address] [facility] Estimated Glomerular Filtration Rate 85 >=60 mL/min/1.7 3m 05/27/2023 12:[address] [facility] Comment:Estimated Glomerular Filtration Rate (eGFR) is calculated using the 2020 CKD-EPI creatinine equation. This equation utilizes serum creatinine, sex, and age as parameters. The creatinine assay has traceable calibration to isotope dilution- mass spectrometry. Refer to KDIGO guidelines for clinical interpretation. In patients with unstable renal function, e.g. those with acute kidney injury, the eGFR may not accurately reflect actual GFR. Blood BLOOD SPECIMEN / Unknown Venipuncture / Unknown 05/26/2023 10:02 PM EDT 05/26/2023 11:23 PM EDT us Mandeep Nj MD LABORATORY Final Result [facility] [address] [address], [place] from Last 3 Months or Most Recently Relevant to Health Maintenance Insurance [employer] MED[employer]ARE Care Teams Health Care Marketing Manager Relationship Specialty Start Date End Date Kyle George DO PCP - General Internal Medicine 05/02/23 Demetrice Montgomery DO Referring Network Analyst 04/08/23
--- OUTSIDE RECORDS SUMMARY | 2025-04-26 12:23 | XMS_ITS | Encounter Summary ---
Author Organization [facility] Healthcare Address [address] [place] [address] Care Team Providers Care Material Inspector Name Role Phone Kyle George Jamey DO Unavailable [phone] Demetrice Montgomery DO Unavailable [phone] Mandeep Nj MD Unavailable Riri Benavides MD Unavailable [phone] Felipe Lopez MARINE ENGINE MACHINIST APPRENTICE Unavailable [phone] Johnny Field DO Unavailable Tico Morley MD Primary Care Provider [phone] Encounter Details Date Type Department Care Team (Late st Contact Info) Description 04/14/2025 [facility] [address] [facility] [address] [place] [address] Felipe Lopez, MARINE ENGINE MACHINIST APPRENTICE [address] [facility] [address] [place], [place] [phone] T3, free, T4, free, TSH Social History Tobacco Use Types Packs/Day Years Used Date Smoking Tobacco: Former Cigarettes 0 09/02/1974 - 09/02/2018 Passive Smoke Exposure: Past Smokeless Tobacco: Never Comments:Last smoked : 3-6 m [facility] Moderate cigarette smoker 10-19 cigs / day [...] on file documented as of this encounter Miscellaneous Notes * Result Encounter Note - Joaquin Mayorga MA - 04/14/2025 2:27 PM EDT Patient informed of the below information. Rx sent to [facility] per patient's request. Labs ordered * Result Encounter Note - Felipe Lopez NP - 04/14/2025 12:40 PM EDT Asdvise pt that free T3 is normal, Free T4 is normal. TSH slightly increased. We can wait and recheck in 3 to 6 months TSH or if she feels tired increase to 75 mcg of synthroid and recheck TSH and free T4 in 3 months. documented in this encounter Plan of Treatment Upcoming Encounters Date Type Department Care Team (Late st Contact Info) Description 05/12/2025 3:15 PM EDT Office Visit [facility] [address] [place] [address] Deb Dwyer MD [address] [place] [address] 09/14/2025 1:15 PM EST Office Visit [facility] [address] [place] [address] 12/28/2025 10:00 AM EDT Clinical Support [facility] [address] [phone] Luann Gross, [facility] [address] [place] [address] 12/31/2025 10:00 AM EDT [facility] [address] [place] [phone] Johnny Field DO [address] [place] [address] 04/18/2026 1:15 PM EDT Office Visit [facility] [address] [place] [address] [phone] Demetrice Montgomery DO [address] [phone] Scheduled Orders Name Type Priority Associated Diagnoses Orde r Schedule TSH Lab Routine Other specified hypothyroidism Expected: 07/13/2025 (Approximate), Expires: 10/11/2025 T4, free Lab Routine Other specified hypothyroidism Expected: 07/13/2025 (Approximate), Expires: 10/11/2025 documented as of this encounter Visit Diagnoses Diagnosis Other specified hypothyroidism documented in this encounter Care Teams Material Inspector Relationship Specialty Start Date End Date Kyle George DO [address] [place] [address] PCP - [employer] 09/02/22 Tico Morley MD [address] [place] [address] PCP - General Internal Medicine 04/01/25 Demetrice Montgomery DO [address] [place] [address] Referring Physician Obstetrics and Gynecology 04/30/23 Mandeep Nj MD [address] [place] [address] Referring Physician Ophthalmology 04/30/23 RIRI BENAVIDES [address] [place] [address] Referring Physician General Surgery 04/30/23 Felipe Lopez NP [address] [place] [address] Referring Physician Internal Medicine 12/28/24 Johnny Field DO [address] [place] [address] Otolaryngology 12/28/24 documented as of this encounter
--- OUTSIDE RECORDS SUMMARY | 2025-04-26 12:23 | XMS_ITS | Clinical Summary ---
Author Organization [facility] Address [address] [place] [id number] Phone Care Team Providers Care Contract Negotiation Specialist Name Role Phone Unavailable Primary Care Provider Unavailabl e Social History Tobacco Use Types Packs/Day Years Used Date Smoking Tobacco: Never Assessed Comments Unknown Sex and Gender Information Value Date Recorded Sex Assigned at Not on file Legal Sex Female 3:48 PM EST Gender Identity Not on file Sexual Orientation Not on file Plan of Treatment Not on file
--- OUTSIDE RECORDS SUMMARY | 2025-04-26 12:23 | XMS_ITS ---
Author Organization [facility] Address [address] [place] [address] Care Team Providers Care Medical Record Coder Name Role Phone Kyle George DO Unavailable [phone] Demetrice Montgomery DO Unavailable [phone] Mandeep Nj MD Unavailable Seamus López MD Unavailable [phone] Felipe Lopez SUPERVISOR [employer] Unavailable [phone] Johnny Field DO Unavailable Tico Morley MD Primary Care Provider Active Problems Problem Noted Date Diagnosed Date IFG (impaired fasting glucose) 11/12/2023 Recurrent major depressive disorder, in partial remission 04/30/2023 Age related osteoporosis 03/01/2023 Decreased hearing of both ears 03/01/2023 Diverticulosis 03/01/2023 Elevated LDL cholesterol level 03/01/2023 Estrogen receptor positive neoplasm 03/01/2023 Facet arthritis of lumbosacral region 03/01/2023 Former smoker 03/01/2023 History of basal cell carcinoma (BCC) 03/01/2023 History of hysterectomy for benign disease 03/01 History of malignant neoplasm of breast 03/01/20 23 Incisional hernia, without obstruction or gangre ne 03/01/2023 Kidney stones 03/01/2023 Malignant neoplasm of central portion of left fe male breast 03/01/2023 Acquired hypothyroidism 03/01/2023 Personal history of colonic polyps 03/01/2023 Current Treatment and Therapy Plans No current plan information found. Past Treatment and Therapy Plans No past plan information found. Lifetime Dose Tracking * Chemical Lifetime Dose Automatic Entry Manual Entr y Radiation 13 mSv 13 mSv 0 mSv Resolved Problems Problem Noted Date Diagnosed Date Resolved Date Preop examination 06/26/2023 12/28/2024 Post-op pain 05/22/2023 12/28/2024 HLD (hyperlipidemia) 05/10/2023 025 Class 1 obesity due to exces s calories with serious comorbidity and body mass index (BMI) of 34.0 to 34.9 in adult 04/30/2023 04/19/2024 Adnexal mass 04/29/2023 12/28/2024 Abnormal gait 03/01/2023 11/08/2023 Colon polyps 03/01/2023 11/08/2023 Elevated ALT measurement 03/01/202312/2024 Elevated TSH 03/01/2023 04/30/2023 Female cystocele 03/01/2023 11/08/2023 Hyperuricemia 03/01/2023 03/18/2024 Left breast mass 03/01/2023 11/08/2023 Primary osteoarthritis of both knees 03/01/2023 10/06/2024 Disease due to severe acute respiratory syndrome coronavirus 2 (SARS-CoV-2) 06/23/2020 03/0 04/2024 Overview (03/01/2023): Problem added by Rule (IC_COVID19_AUTO_PROBLEM) following 2018 Novel Coronavirus (CoVID-19), JULES L from Nasopharyngeal Swab collected on 21-JUN-2020 14:30:00 EDT tested positive for COVID-19.
--- OUTSIDE RECORDS SUMMARY | 2025-04-26 12:23 | XMS_ITS | Encounter Summary ---
Author Organization [facility] Address [address] [place] [address] Care Team Providers Care Help Desk Internship Name Role Phone Kyle George DO Unavailable [phone] Kyle George DO Primary Care Provider Demetriec Montgomery DO Unavailable [phone] Mandeep Nj MD Unavailable Riri Benavides MD Unavailable [phone] Felipe Lopez PLANT MAINTENANCE TECHNICIAN Unavailable [phone] Johnny Field DO Unavailable [phone] Tico Morley MD Primary Care Provider [phone] Encounter Details Date Type Department Care Team (Late st Contact Info) Description 05/09/2023 Clinisync Result Encounter [facility] External Department Unsolicited Provider, Generic External Data Social History Tobacco Use Types Packs/Day Years Used Date Smoking Tobacco: Former Cigarettes 0 09/02/1974 - 09/02/2017 Smokeless Tobacco: Never Comments:Last smoked : 3-6 m [facility] Moderate cigarette smoker 10-19 cigs [...] Dermatology [address] [place] [address] Deb Dwyer MD [address] [place] [address] 09/14/2025 1:15 PM EST Office Visit [facility] [address] [place] [phone] 12/28/2025 10:00 AM EDT Clinical Support [facility] [address] [place] [address] Luann Gross, [facility] [address] [place] [address] 12/31/2025 10:00 AM EDT Office Visit [facility] [address] [place] [phone] Johnny Field DO [address] [place] [address] 04/18/2026 1:15 PM EDT Office Visit [facility] [address] [phone] Demetrice Montgomery DO [address] [phone] documented as of this encounter Procedures Procedure Name Priority Date/Time Associated Diagnosis Comments CT ABD/PEL W IVCON 05/09/2023 10 :29 AM EDT documented in this encounter Results * CT ABD/PEL W IVCON (05/09/2023 10:29 AM EDT) Anatomical Region Laterality Modality Other 05/09/2023 10:2 9 AM EDT Narrative 05/10/2023 11:13 AM EDT * * *Final Report* * * DATE OF EXAM: May 09 2023 10:29AM [facility] 0530 - CT ABD/PEL W IVCON / PROCEDURE REASON: Adnexal mass * * * * Physician Interpretation * * * * RESULT: EXAMINATION: CT ABDOMEN AND PELVIS WITH IV CONTRAST CLINICAL HISTORY: Adnexal mass TECHNIQUE: CT of the abdomen and pelvis was performed using standard technique, scanning from just above the dome of the diaphragm to the symphysis pubis. MQ: CTAP_3 Contrast: IV: 150 ml of Omnipaque 300 Oral: 500 ml of Omni 240 10-25ml diluted with water CT Radiation dose: Integrated Dose-length product (DLP) for this visit = 999 mGy*cm. CT Dose Reduction Employed: Automated exposure control (AEC) COMPARISON: No prior imaging was available for comparison at the time of dictation. Per the electronic medical record, an ultrasound performed on 03/26/2023 revealed a 4.3 x 2.5 x 2.7 cm complex left adnexal mass. RESULT: Liver: Unremarkable. No focal hepatic lesion identified. Biliary: Unremarkable gallbladder. No biliary ductal dilation. Spleen: Unremarkable. No splenomegaly. Pancreas: No mass or duct dilation. Adrenals: A 1.6 x 1.3 cm indeterminate left adrenal nodule is present, measured on series 3 image 22. The right adrenal gland is unremarkable. Kidneys: Nonobstructing bilateral renal calculi are noted. A 6 mm calculus is present at the upper pole of the left kidney on series 4 image 64. A 4 mm right lower pole renal calculus is noted on series 4 image 47. There are subcentimeter low-attenuation foci in both renal cortices which are too small to characterize, but likely represent cysts. The kidneys are otherwise unremarkable. There is no renal collecting system dilation. GI tract: The small and large bowel are normal in caliber. There is no bowel wall thickening or mesenteric inflammation. Colonic diverticulosis is noted, there are no CT findings of diverticulitis. Postsurgical changes from partial right hemicolectomy are noted. There is a small ventral abdominal wall hernia located just to the right of midline at the level of the umbilicus, this contains mesenteric fat in the anterior wall of the short segment of the transverse colon, see series 3 image 84. Lymph nodes: No pathologically enlarged lymph nodes are identified in the abdomen or pelvis. Mesentery/Peritoneum: No ascites or mass. No CT evidence of nodular soft tissue implantation. Retroperitoneum: No mass. Vasculature: Mild to moderate calcified atherosclerotic disease noted involving a normal caliber abdominal aorta. Pelvis: Uterus is surgically absent. The left ovary is slightly asymmetrically larger and perhaps mildly heterogeneous in appearance compared to the right side, with minimal stranding noted in the adjacent fat for example see series 3 image 97. No discernible mass is seen in the left adnexa, this may be due to limitations of CT resolution given the findings on a reported recent ultrasound. Bones/Soft Tissues: In addition to the ventral hernia described above, there are at least 2 small fat containing ventral abdominal wall hernias in the epigastric region, for example see series 3 image 50, and series 3 image 36. No destructive skeletal lesion is present. Lower thorax: A 4 mm solid pulmonary nodule is noted in the right lower lobe on series 3 image 7. The visualized lung bases are otherwise clear. Heavy Mobile Equipment Repairer (topogram) images: Unremarkable. IMPRESSION: 1. The left ovary is slightly asymmetrically larger and perhaps mildly heterogeneous in appearance compared to the right, with no discernible left adnexal mass seen with CT. This may be due to limitations of CT resolution for assessment of the ovaries, given the reported presence of a 4.3 cm complex mass in the left adnexa on a recent previous ultrasound. Per the electronic medical record the patient is scheduled to undergo laparoscopy, this can be assessed at that time. 2. 1.6 cm indeterminate left adrenal nodule, which is statistically likely to represent an adrenal adenoma. This could potentially be confirmed with adrenal protocol CT of the abdomen with and without IV contrast. 3. Otherwise, there is no CT evidence of metastatic disease in the abdomen or pelvis. 4. 4 mm solid pulmonary nodule in the right lower lobe. The need for follow-up of this nodule can be determined pending workup of the left adnexal abnormality with laparoscopy. 5. Nonobstructing bilateral renal calculi. Transcribe Date/Time: May 10 2023 10:51A Dictated by: NASIMA GELLER MD This examination was interpreted and the report reviewed and electronically signed by: NASIMA GELLER MD on May 10 2023 11:11AM EST Thank you for allowing us to participate in the care of your patient. Should there be any questions regarding this interpretation, please call [phone]. If you are unable to reach us at the number above, please feel free to contact [facility] at [phone]. [id number]^[email or web address] Procedure Note Radiology, Radiologist, - 05/14/2023 * * *Final Report* * * DATE OF EXAM: May 09 2023 10:29AM [facility] 0530 - CT ABD/PEL W IVCON / PROCEDURE REASON: Adnexal mass * * * * Physician Interpretation * * * * RESULT: EXAMINATION: CT ABDOMEN AND PELVIS WITH IV CONTRAST CLINICAL HISTORY: Adnexal mass TECHNIQUE: CT of the abdomen and pelvis was performed using standard technique, scanning from just above the dome of the diaphragm to the symphysis pubis. MQ: CTAP_3 Contrast: IV: 150 ml of Omnipaque 300 Oral: 500 ml of Omni 240 10-25ml diluted with water CT Radiation dose: Integrated Dose-length product (DLP) for this visit = 999 mGy*cm. CT Dose Reduction Employed: Automated exposure control (AEC) COMPARISON: No prior imaging was available for comparison at the time of dictation. Per the electronic medical record, an ultrasound performed on 03/26/2023 revealed a 4.3 x 2.5 x 2.7 cm complex left adnexal mass. RESULT: Liver: Unremarkable. No focal hepatic lesion identified. Biliary: Unremarkable gallbladder. No biliary ductal dilation. Spleen: Unremarkable. No splenomegaly. Pancreas: No mass or duct dilation. Adrenals: A 1.6 x 1.3 cm indeterminate left adrenal nodule is present, measured on series 3 image 22. The right adrenal gland is unremarkable. Kidneys: Nonobstructing bilateral renal calculi are noted. A 6 mm calculus is present at the upper pole of the left kidney on series 4 image 64. A 4 mm right lower pole renal calculus is noted on series 4 image 47. There are subcentimeter low-attenuation foci in both renal cortices which are too small to characterize, but likely represent cysts. The kidneys are otherwise unremarkable. There is no renal collecting system dilation. GI tract: The small and large bowel are normal in caliber. There is no bowel wall thickening or mesenteric inflammation. Colonic diverticulosis is noted, there are no CT findings of diverticulitis. Postsurgical changes from partial right hemicolectomy are noted. There is a small ventral abdominal wall hernia located just to the right of midline at the level of the umbilicus, this contains mesenteric fat in the anterior wall of the short segment of the transverse colon, see series 3 image 84. Lymph nodes: No pathologically enlarged lymph nodes are identified in the abdomen or pelvis. Mesentery/Peritoneum: No ascites or mass. No CT evidence of nodular soft tissue implantation. Retroperitoneum: No mass. Vasculature: Mild to moderate calcified atherosclerotic disease noted involving a normal caliber abdominal aorta. Pelvis: Uterus is surgically absent. The left ovary is slightly asymmetrically larger and perhaps mildly heterogeneous in appearance compared to the right side, with minimal stranding noted in the adjacent fat for example see series 3 image 97. No discernible mass is seen in the left adnexa, this may be due to limitations of CT resolution given the findings on a reported recent ultrasound. Bones/Soft Tissues: In addition to the ventral hernia described above, there are at least 2 small fat containing ventral abdominal wall hernias in the epigastric region, for example see series 3 image 50, and series 3 image 36. No destructive skeletal lesion is present. Lower thorax: A 4 mm solid pulmonary nodule is noted in the right lower lobe on series 3 image 7. The visualized lung bases are otherwise clear. Heavy Mobile Equipment Repairer (topogram) images: Unremarkable. IMPRESSION: 1. The left ovary is slightly asymmetrically larger and perhaps mildly heterogeneous in appearance compared to the right, with no discernible left adnexal mass seen with CT. This may be due to limitations of CT resolution for assessment of the ovaries, given the reported presence of a 4.3 cm complex mass in the left adnexa on a recent previous ultrasound. Per the electronic medical record the patient is scheduled to undergo laparoscopy, this can be assessed at that time. 2. 1.6 cm indeterminate left adrenal nodule, which is statistically likely to represent an adrenal adenoma. This could potentially be confirmed with adrenal protocol CT of the abdomen with and without IV contrast. 3. Otherwise, there is no CT evidence of metastatic disease in the abdomen or pelvis. 4. 4 mm solid pulmonary nodule in the right lower lobe. The need for follow-up of this nodule can be determined pending workup of the left adnexal abnormality with laparoscopy. 5. Nonobstructing bilateral renal calculi. Transcribe Date/Time: May 10 2023 10:51A Dictated by: NASIMA GELLER MD This examination was interpreted and the report reviewed and electronically signed by: NASIMA GELLER MD on May 10 2023 11:11AM EST Thank you for allowing us to participate in the care of your patient. Should there be any questions regarding this interpretation, please call [phone]. If you are unable to reach us at the number above, please feel free to contact [facility] at [phone]. [id number]^[email or web address]^ACN us Generic External Data Provider [facility] Final Result documented in this encounter Visit Diagnoses Not on filedocumented in this encounter Care Teams Help Desk Internship Relationship Specialty Start Date End Date Kyle George DO [address] [place] [address] PCP - [employer] 09/02/22 Kyle George DO [address] [place] [address] PCP - General Internal Medicine 04/24/23 03/31/25 Tico Morley MD [address] [place] [address] PCP - General Internal Medicine 04/01/25 Demetrice Montgomery DO [address] [place] [address] Referring Physician Obstetrics and Gynecology 04/30/23 Mandeep Nj MD [address] [place] [address] Referring Physician Ophthalmology 04/30/23 RIRI BENAVIDES [address] [place] [address] Referring Physician General Surgery 04/30/23 Felipe Lopez NP [address] [place] [address] Referring Physician Internal Medicine 12/28/24 Johnny Field DO [address] [place] [address] Otolaryngology 12/28/24 documented as of this encounter
--- OUTSIDE RECORDS SUMMARY | 2025-04-26 12:23 | XMS_ITS | Encounter Summary ---
Author Organization [facility] Address [address] [place] [address] Care Team Providers Care Automatic Lathe Setter Name Role Phone Kyle George DO Unavailable [phone] Kyle George DO Primary Care Provider [phone] Kyle George DO Primary Care Provider [phone] Demetrice Montgomery DO Unavailable Mandeep Nj MD Unavailable Riri Benavides MD Unavailable [phone] Felipe Lopez DIGITAL SOLUTIONS ARCHITECT Unavailable [phone] Johnny Field DO Unavailable Tico Morley MD Primary Care Provider Encounter Details Date Type Department Care Team (Late st Contact Info) Description 03/26/2023 Abstract [facility] [address] [facility] [address] [place] [phone] Demetrice Montgomery DO [address] [address] Social History Tobacco Use Types Packs/Day Years Used Date Smoking Tobacco: Former Cigarettes 0 09/02/1974 - 09/02/2017 Smokeless Tobacco: Never Tobacco Cessation:Counseling Given: Not Answered Comments:Last smoked : 3-6 months Moderate cigarette smoker 10-19 cigs / day Alcohol Use Standard Drinks/Week Comments Yes 1 (1 standard drink = 0.6 oz pure alcohol) caffeine intake: 23- cups per day ; tea 2 glasses Comments No Sex and Gender Information Value [...] suspected to have Coronavirus/COVID-19? No / Unsure 03/25/2023 6:37 PM EDT documented as of this encounter Plan of Treatment Upcoming Encounters Date Type Department Care Team (Late st Contact Info) Description 05/12/2025 3:15 PM EDT Office Visit [facility] [address] [place] [address] Deb Dwyer MD [address] [place] [address] 09/14/2025 1:15 PM EST Office Visit [facility] [address] [place] [address] 12/28/2025 10:00 AM EDT Clinical Support [facility] [address] [place] [address] Luann Gross, [facility] [address] [place] [address] 12/31/2025 10:00 AM EDT Office Visit [facility] [address] [place] [phone] Johnny Field DO [address] [place] [address] 04/18/2026 1:15 PM EDT Office Visit [facility] [address] [address] Demetrice Montgomery DO [address] [address] documented as of this encounter Visit Diagnoses Not on filedocumented in this encounter Care Teams Automatic Lathe Setter Relationship Specialty Start Date End Date Kyle George DO [address] [place] [address] PCP - [employer] 09/02/22 Kyle George DO [address] [place] [address] PCP - General Internal Medicine 03/01/23 04/23/23 Kyle George DO [address] [place] [address] PCP - General Internal Medicine 04/24/23 03/31/25 Tico Morley MD [address] [place] [address] PCP - General Internal Medicine 04/01/25 Demetrice Montgomery DO [address] [place] [address] Referring Physician Obstetrics and Gynecology 04/30/23 Mandeep Nj MD [address] [place] [address] Referring Physician Ophthalmology 04/30/23 RIRI BENAVIDES [address] [place] [address] Referring Physician General Surgery 04/30/23 Felipe Lopez NP [address] [place] [address] Referring Physician Internal Medicine 12/28/24 Johnny Field DO [address] [place] [address] Otolaryngology 12/28/24 documented as of this encounter
--- OUTSIDE RECORDS SUMMARY | 2025-04-26 12:24 | XMS_ITS | Encounter Summary ---
Author Organization [facility] Address [address] [place] [address] Care Team Providers Care Bereavement Counselor Name Role Phone Kyle George DO Unavailable [phone] Kyle George DO Primary Care Provider Demetrice Montgomery DO Unavailable [phone] Mandeep Nj MD Unavailable Riri Benavides MD Unavailable [phone] Felipe Lopez RETAIL INTERIOR DESIGNER Unavailable Johnny Field DO Unavailable [phone] Tico Morley MD Primary Care Provider [phone] Encounter Details Date Type Department Care Team (Late st Contact Info) Description 07/02/2024 External Result Encounter [facility] External Department Unsolicited Nikki Brunner MD [address] [place] [address] Social History Tobacco Use Types Packs/Day Years Used Date Smoking Tobacco: Former Cigarettes 0 09/02/1974 - 09/02/2018 Passive Smoke Exposure: Past Smokeless Tobacco: Never Comments:Last smoked : 3-6 m [facility] Moderate cigarette smoker 10-19 cigs / day [...] Dermatology [address] [place] [phone] Deb Dwyer MD [address] [place] [address] 09/14/2025 1:15 PM EST Office Visit [facility] [address] [place] [address] 12/28/2025 10:00 AM EDT Clinical Support [facility] [address] [place] [phone] Luann Gross, [facility] [address] [place] [address] 12/31/2025 10:00 AM EDT Office Visit [facility] [address] [place] [phone] Johnny Field DO [address] [place] [address] 04/18/2026 1:15 PM EDT Office Visit [facility] [address] [phone] Demetrice Montgomery DO [address] [phone] documented as of this encounter Procedures Procedure Name Priority Date/Time Associated Diagnosis Comments BI MAMMOGRAM SCREENING TOMOSYNTHESIS BILATERAL 07/02/2024 2:54 PM EDT documented in this encounter Results * Bilateral screening mammogram with tomosynthesis (07/02/2024 2:54 PM EDT) Anatomical Region Laterality Modality Breast Bilateral Mammography 07/02/2024 2:54 PM EDT Impressions 07/02/2024 3:02 PM EDT NO MAMMOGRAPHIC EVIDENCE OF MALIGNANCY. ROUTINE FOLLOW-UP [...] Lakeshia Benítez M.D.07/02/2024 3:00 PM Dictation Location: [facility] Transcribed By: [facility] 07/02/24 1500 Dictated By: Lakeshia Benítez MD 07/02/24 1454 Signed By: <Electronically signed by MD Lakeshia Benítez in OV> 07/02/24 1500 Narrative 07/02/2024 3:02 PM EDT [facility] Main [address] [address] Mammography Report Signed Patient: Kinjal Penaloza MR#: [id number] : 1950 Acct:[id number] Age/Sex: 74 / F ADM Date: 07/01/23 Loc: Room: Type: [facility] RCR Attending Dr: Nikki Brunner MD Copies [...] interval change. MM/MM screening mammo BI w/CAD Procedure Note Radiology, Radiologist, MD - 07/02/2024 [facility] Main [place] [address] [place] [address] Mammography Report Signed Patient: Kinjal Penaloza EMR#: [id number] : 1950Acct:[id number] Age/Sex: 74 / FADM Date: 07/01/23 Loc: XT Room:Type: [facility] Attending Dr: Nikki Brunner MD Copies to: MD Riri Liang MD Jeffrey A Garman, DO Ordering Provider: Nikki Brunner MD Date of Service: 07/02/24 MM/MM screening mammo BI w/CAD: Hx of leftbreast cancer CLINICAL DATA: Screening for malignancy. History of left breast cancer. BILATERAL SCREENING MAMMOGRAMS - FULL FIELD DIGITAL WITH TOMOSYNTHESIS ANDCAD Tomosynthesis craniocaudal and mediolateral oblique views of both breastswere obtained using low- dose digital technique. Comparison is made to prior studies fromMay 10, 2020 through July 01, 2023. This examination was reviewed with the aid of CAD. There are scattered fibroglandular densities. Postoperative scarring withBioZorb is again visualized at the central left breast at middle to posterior depth. Thereis associated calcification suggesting oil cyst. Additional benign calcifications areseen. There are no developing masses, typically malignant calcifications or architecturaldistortion. There has been no significant interval change. MM/MM screening mammo BI w/CAD IMPRESSION: NO [...] date for thenext mammogram. Impression dictated by: Lakeshia Benítez M.D.07/02/2024 3:00 PM Dictation Location: [facility] Transcribed By: [facility] 07/02/24 1500 Dictated By: Lakeshia Benítez MD 07/02/24 1454 Signed By: <Electronically signed by MD Lakeshia Benítez in OV> 07/02/24 1500 Nikki Brunner MD IMG BI PROCEDURES Final Result documented in this encounter Visit Diagnoses Not on filedocumented in this encounter Care Teams Bereavement Counselor Relationship Specialty Start Date End Date Kyle George DO [address] [place] [address] PCP - Aet 09/02/22 Kyle George DO [address] [place] [address] PCP - General Internal Medicine 04/24/23 03/31/25 Tico Morley MD [address] [place] [address] PCP - General Internal Medicine 04/01/25 Demetrice Montgomery DO [address] [place] [address] Referring Physician Obstetrics and Gynecology 04/30/23 Mandeep Nj MD [address] [place] [address] Referring Physician Ophthalmology 04/30/23 RIRI BENAVIDES [address] [place] [address] Referring Physician General Surgery 04/30/23 Felipe Lopez NP [address] [address] Referring Physician Internal Medicine 12/28/24 Johnny Field DO [address] [place] [address] Otolaryngology 12/28/24 documented as of this encounter
--- OUTSIDE RECORDS SUMMARY | 2025-04-26 12:24 | XMS_ITS | Encounter Summary ---
Author Organization [facility] Address [facility] [place] [address] Care Team Providers Care Packing Machine Can Feeder Name Role Phone Demetrice Montgomery DO Unavailable [phone] Kyle Georgean Primary Care Provider + Source Comments In the event this information is protected by the Federal Confidentiality of Alcohol and Drug AbusePatient Records regulations: The Federal rules restrict any use of the information to criminally investigate or prosecute any alcohol or drug abuse patient.[facility] Encounter Details Date Type Department Care Team (Late st Contact Info) Description 05/13/2023 Patient Msg Gynecology Oncology [id number] [place] [id number] Provider, [facility] Pre-op instructions Social History Tobacco Use Types Packs/Day Years Used Date Smoking Tobacco: Former Cigarettes 0.5 30 0 09/02/1988 - 09/02/2018 Smokeless Tobacco: Never Alcohol Use Standard Drinks/Week Comments Yes 0 (1 standard drink = 0.6 oz pur e alcohol) 2 drinks on weekends Area Deprivation Index Answer Date Edmond rded National Score (1-100), lower number is lower ri sk 47 04/17/2023 State Score (1-10), lower number is lower risk 2 04/17/2023 Data from: https://www.neighborhoodatlas.medicine.[facility].edu/. Last address used for calculation [address] 04/17/2023 Comments No Sex and Gender Information Value Date Recorded Sex Assigned at Not on file Legal Sex Female 4:03 PM EDT Gender Identity Not on file Sexual Orientation Not on file documented as of this encounter Plan of Treatment Not on file documented as of this encounter Visit Diagnoses Not on filedocumented in this encounter Care Teams Packing Machine Can Feeder Relationship Specialty Start Date End Date Kyle George DO PCP - General Internal Medicine 05/02/23 Demetrice Montgomery DO Referring Wheelabrator Operator 04/08/23 documented as of this encounter
--- OUTSIDE RECORDS SUMMARY | 2025-04-26 12:24 | XMS_ITS | Clinical Summary ---
Author Organization [facility] Address [address] [place] [address] Care Team Providers Care Hull Builder Name Role Phone ArielKyle DO Unavailable [phone] Demetrice Montgomery DO Unavailable [phone] Mandeep Nj MD Unavailable Riri Benavides MD Unavailable [phone] Felipe Lopez LICENSED PHYSICAL THERAPIST Unavailable Johnny Field DO Unavailable Tico Morley MD Primary Care Provider [phone] Allergies Active Allergy Reactions Criticality Noted Date Comments Sulfa Antibiotics Unknown,Rash Low 03/01/2023 Medications Cyanocobalamin (Vitamin B12) 1000 MCG tablet controlled-release 1 (one) time each day at the same time Active tamoxifen (Nolvadex) 20 MG chemo tablet 1 (one) time each day at the same time. Active cholecalciferol (Vitamin D-3) 25 MCG (1000 UT) capsule Take 1,000 Units by mouth Daily Active potassium bicarbonate (Effer-K) 25 MEQ effervescent tabletIndications: Recurrent major depressive disorder, in partial remission Take 1 tablet (25 mEq) by mouth every 12 (twelve) hours 180 tablet 1 12/30/19 24 Active fluocinonide (Lidex) 0.05 % external solutionIndication s:Pruritus Apply to affected areas on the scalp, up to twice a day when flared, 30 day supply 60 mL 11 07/20/20 24 Active atorvastatin (Lipitor) 20 MG tabletIndications: Elevated LDL cholesterol level 1 tablet Orally at nite for 90 days 90 tablet 1 12/10/19 25 Active allopurinol (Zyloprim) 100 MG tabletIndications: Hyperuricemia Take 1 tablet (100 mg) by mouth Daily 90 tablet 1 12/10/19 25 Active venlafaxine (Effexor) 75 MG tabletIndications: Recurrent major depressive disorder, in partial remission Take 1 tablet (75 mg) by mouth 1 (one) time each day at the same time 90 tablet 1 12/10/19 25 Active alendronate (Fosamax) 70 MG tabletIndications: Age-related osteoporosis without current pathological fracture 1 tablet Orally once a week, sit upright for 30 minutes after taking. 12 tablet 1 12/29/19 25 Active levothyroxine (Synthroid, Levoxyl) 75 MCG tabletIndications: Other specified hypothyroidism Take 1 tablet (75 mcg) by mouth Daily 90 tablet 3 04/14/20 25 026 Active levothyroxine (Synthroid, Levoxyl) 50 MCG tabletIndications: Other specified hypothyroidism 1 tablet Orally in am for 90 days 90 tablet 1 12/10/19 25 025 Discontin ued(Dose adjustmen t) lidocaine (Lidoderm) 5 % patchIndications:A cute right-sided thoracic back pain Apply 1 patch over 12 hours topically Daily Apply to painful area 12 hours per day, remove for 12 hours. 30 patch 1 03/30/20 25 025 Discontin ued(Other ) Active Problems Problem Noted Date Diagnosed Date [...] 03/01/2023 Personal history of colonic polyps 03/01/2023 Resolved Problems Problem Noted Date Diagnosed Date [...] acute respiratory syndrome coronavirus 2 (SARS-CoV-2) 06/23/2020 03/04/2024 Overview (03/01/2023): Problem added by Rule (IC_COVID19_AUTO_PROBLEM) following 2019 Novel Coronavirus (CoVID-19), JULES L from Nasopharyngeal Swab collected on 21-JUN-2020 14:30:00 EDT tested positive for COVID-19. Encounters Date Type Department Care Team Description 04/14/2025 Results Follow-Up [facility] [address] [place] [address] Felipe Lopez, LICENSED PHYSICAL THERAPIST T3, free, T4, free, TSH 04/13/2025 1:15 PM EDT Office Visit [facility] [address] [facility] [address] [place] [address] Demetrice Montgomery, Encounter for gynecological examination (general) (routine) with abnormal findings (Primary Dx); Cystocele, midline; Osteopenia, unspecified location; Screening breast examination; History of breast cancer; Hx of hysterectomy for benign disease 04/13/2025 Travel 04/04/2025 Results Follow-Up [facility] [address] [facility] [address] [place] [phone] Tico Morley MD CT abdomen pelvis wo IV contrast, Urine culture, Urinalysis with reflex microscopic (clean catch) 04/01/2025 Telephone [facility] [address] [facility] [address] [place] [phone] Fiona Moreno LPN CT order 03/30/2025 Results Follow-Up [facility] [address] [facility] [address] [place] [phone] Susan Grande, LICENSED PHYSICAL THERAPIST XR ribs 2 views right 03/29/2025 2:00 PM EDT Ancillary Procedure [facility] [address] [facility] [address] [place] [address] Acute right-sided thoracic back pain 03/29/2025 1:30 PM EDT Office Visit [facility] [address] [facility] [address] [place] [address] Susan Grande, LICENSED PHYSICAL THERAPIST Acute right-sided thoracic back pain (Primary Dx); Rib pain on right side; Acquired hypothyroidism 03/29/2025 Travel 03/02/2025 10:15 AM EDT Office Visit [facility] [address] [facility] [address] [place] [address] Kyle George DO IFG (impaired fasting glucose) (Primary Dx); Acquired hypothyroidism ; Stage 3a chronic kidney disease (CMS-HCC); Kidney stones; Age-related osteoporosis without current pathological fracture ; Elevated LDL cholesterol level ; Malignant neoplasm of central portion of left female breast, unspecified estrogen receptor status (HCC) 03/02/2025 Bamboo flowsheet [facility] [address] [facility] [address] [place] [phone] Kyle George, 03/02/2025 Travel 02/23/2025 Travel 01/29/2025 Telephone [facility] [address] [place] [address] Elijah Chamberlain DO left knee 01/26/2025 1:15 PM EDT Office Visit [facility] [address] [place] [address] Elijah Chamberlain DO Left knee pain, unspecified chronicity (Primary Dx) 01/26/2025 12:50 PM EDT Ancillary Procedure [facility] [address] [place] [address] 01/26/2025 Travel from Last 3 Months Immunizations Immunization Administration Dates Next Due Influenza, High Dose Seasonal, Preservative Free 05/27/2020,05/22/2017 Influenza, High-dose Seasona l, Quadrivalent, Preservative Free 05/29/2021 Influenza, Seasonal, Quadrivalent, Adjuvanted ,06/11/2022 Influenza, Unspecified 06/22/2015 Influenza, injectable, quadrivalent 06/19/2023,1 Influenza, injectable, quadrivalent, preservativ e free 05/03/2021 Influenza, seasonal, injectable 08/08/2016 Influenza, seasonal, injectable, preservative fr ee 07/04/2015 Influenza, trivalent, adjuvanted 06/02/2024 Pneumococcal Conjugate PCV 13 08/15/2015 Pneumococcal Polysaccharide PPSV23 08/09/2016 RSV, recombinant, protein villasenor bunit RSVpreF, adjuvant reconstitu, 120mcg/0.5mL, PF (Arexvy) 08/09/2023 SARS-COV-2 (COVID-19) vaccin e, mRNA, spike protein, LNP, bivalent, PF 07/06/2022 Tdap 01/17/2021,07/18/2011 Zoster, Recombinant 10/17/2019,07/07/2019 Family History Medical History Relation Name Comments Heart disease Brother Bro Arthritis Father DOD Heart attack Father DOD Heart disease Father DOD Pneumonia Mother Sleep apnea Son Melanoma Neg Hx Relation Name Status Comments Brother Bro 1 brother Father DOD Mother Son Alive 2 sons Social History Tobacco Use Types Packs/Day Years Used Date Smoking Tobacco: Former Cigarettes 0 09/02/1974 - 09/02/2018 Passive Smoke Exposure: Past Smokeless Tobacco: Never Tobacco Cessation:Counseling Given: Not [...] file Not on file Not on file Last Filed Vital Signs Vital Sign Reading Time Taken Comments Blood Pressure 130/76 04/13/2025 1:10 PM EDT Pulse 88 03/29/2025 1:52 PM EDT Temperature - - Respiratory Rate 16 03/29/2025 1:52 PM EDT Oxygen Saturation 98% 03/29/2025 1:52 PM EDT Inhaled Oxygen Concentration - - Weight 79.8 kg (176 lb) 04/13/2025 1:10 PM EDT Height 160 cm (5' 3 ) 03/02/2025 10:41 AM EDT Body Mass Index 31.18 03/02/2025 10:41 AM EDT Plan of Treatment Upcoming Encounters Date Type Department Care Team (Late st Contact Info) Description 05/12/2025 3:15 PM EDT Office Visit [facility] [address] [place] [address] Deb Dwyer MD [address] [place] [address] 09/14/2025 1:15 PM EST Office Visit [facility] [address] [place] [address] 12/28/2025 10:00 AM EDT Clinical Support [facility] [address] [place] [phone] Luann Gross, [facility] [address] [place] [address] 12/31/2025 10:00 AM EDT [facility] [address] [place] [address] Johnny Field DO [address] [place] [address] 04/18/2026 1:15 PM EDT Office Visit [facility] [address] [phone] Demetrice Montgomery DO [address] [phone] Health Maintenance Due Date Last Done Comments Influenza Vaccine (#1) 2025 , 06/19/2023, 06/19/2023, Additional history exists Medicare Annual Wellness (AWV) 04/13/2026 0 04/13/2025, 06/02/2024, 03/09/2024, Additional history exists Pneumococcal Vaccine: 65+ Years Completed 6, 08/15/2015 Colonoscopy Discontinued 06/07/2022, 05/03, 08/27/2014, Additional history exists Colorectal Cancer Screening Discontinued Mammogram Discontinued 07/02/2024, 06/04, 07/02/2024, Additional history exists CT Colonography Discontinued FIT-DNA Discontinued FIT Discontinued FOBT Discontinued Sigmoidoscopy Discontinued Procedures Procedure Name Priority Date/Time Associated Diagnosis Comments TSH Routine 04/13/2025 11:35 AM EDT Acquired hypothyroidism T4, FREE Routine 04/13/2025 11:35 AM EDT Acquired hypothyroidism T3, FREE Routine 04/13/2025 11:35 AM EDT Acquired hypothyroidism CULTURE, URINE, ROUTINE Routine 04/09/2025 9:45 AM EDT Kidney stone Acute right-sided thoracic back pain URINALYSIS REFLEX Routine 04/08/2025 8:3 0 AM EDT Kidney stone Acute right-sided thoracic back pain CT ABDOMEN PELVIS WO IV CONTRAST Routine 04/02/2025 4:22 PM EDT Acute right-sided thoracic back pain Left lower quadrant abdominal pain Hyperuricemia XR THORACIC SPINE 2 VIEWS Routine 03/29/2025 2:05 PM EDT Acute right-sided thoracic back pain XR RIBS 2 VIEWS RIGHT Routine 03/29/2025 2:05 PM EDT Rib pain on right side CBC Routine 02/23/2025 10:54 AM EDT Medication management T4, FREE Routine 02/23/2025 10:54 AM EDT Other specified hypothyroidism TSH Routine 02/23/2025 10:54 AM EDT Other specified hypothyroidism COMPREHENSIVE METABOLIC PANEL Routine 02/23/2025 10:54 AM EDT Chronic kidney disease, stage 3a (CMS-HCC) IFG (impaired fasting glucose) Medication management LIPID PANEL Routine 02/23/2025 10:54 AM EDT Elevated LDL cholesterol level MICROALBUMIN / CREATININE URINE RATIO Routine 02/23/2025 10:54 AM EDT Chronic kidney disease, stage 3a (CMS-HCC) HEMOGLOBIN A1C WITH EAG Routine 02/23/2025 10:54 AM EDT IFG (impaired fasting glucose) GA ARTHROCENTESIS ASPIR&/INJ MAJOR JT/BURSA W/O US Routine 01/26/2025 1:16 PM EDT Left knee pain, unspecified chronicity XR KNEE 1-2 VIEWS LEFT Routine 12:47 PM EDT Left knee pain, unspecified chronicity BI MAMMOGRAM SCREENING TOMOSYNTHESIS BILATERAL 07/02/2024 2:54 PM EDT COLONOSCOPY Routine 05/15/2022 12:00 PM EDT Personal history of colonic polyps from Last 3 Months or Most Recently Relevant to Health Maintenance Results * T3, free (04/13/2025 11:35 AM EDT) T3, FREE 2.9 2.0 - 4.4 pg/mL [facility] Blood Venous blood specimen / Unknown 04/13/2025 11:35 AM EDT 04/13/2025 Narrative [facility] - 04/14/2025 8:08 AM EDT Performed at: 02 - [facility] [id number] [place] Car[place]: Saurabh Daley PhD, Phone: [phone] us Kyle George DO LAB BLOOD ORDERABLES Final R esult [facility] * (ABNORMAL) TSH (04/13/2025 11:35 AM EDT) Only the most recent of2 resultswithin the time period is included. TSH 4.980(H) 0.450 - 4.500 uIU/mL [facility] Blood Venous blood specimen / Unknown 04/13/2025 11:35 AM EDT 04/13/2025 Narrative [facility] - 04/14/2025 8:08 AM EDT Performed at: 01 - [facility] [address], [place] [id number] [place] Car[place]: Gilma Rushing MD, Phone: [phone] Kyle George DO LAB BLOOD ORDERABLES Final R esult Performing Organization Address [facility] Co de Phone Number [facility] * T4, free (04/13/2025 11:35 AM EDT) Only the most recent of2 resultswithin the time period is included. T4Free(Direct) 1.21 0.82 - 1.77 ng/dL [facility] Blood Venous blood specimen / Unknown 04/13/2025 11:35 AM EDT 04/13/2025 Narrative [facility] - 04/14/2025 8:08 AM EDT Performed at: - [place] [address], [address], [place] [id number] [place] Carver: Gilma Rushing MD, Phone: [phone] Kyle George DO LAB BLOOD ORDERABLES Final R esult Performing Organization Address [facility] Co de Phone Number [facility] * Urine culture (04/09/2025 9:45 AM EDT) Urine Urine specimen obtained by clean catch procedure / Unknown us Tico Morley MD LAB MICROBIOLOGY - [facility] [place] [facility] Final Result Performing Organization Address [facility] Co de Phone Number EXTERNAL LAB * Urinalysis with reflex microscopic (clean catch) (04/08/2025 8:30 AM EDT) Urine Urine specimen obtained by clean catch procedure / Unknown us Tico Morley MD LAB URINE ORDERABLES Final Resu lt EXTERNAL LAB * CT abdomen pelvis wo IV contrast (04/02/2025 4:22 PM EDT) Anatomical Region Laterality Modality Body, Pelvis, Abdomen Computed T omography 04/02/2025 4:22 PM EDT Impressions 04/02/2025 4:27 PM EDT Bilateral nephrolithiasis largest stone measuring 12 mm in greatest axial dimension. It appears to be surrounding inflammatory changes of the right renal pelvis suggestive of intermittent obstruction. Colonic diverticulosis. Impression dictated by: Hebert Morris Jr., D.O. 04/02/2025 4:25 PM Dictation Location: [place] [address] Transcribed By: AHMET 04/02/25 1625 Dictated By: Hebert Morris Jr, DO 04/02/25 1622 Signed By: <Electronically signed by Hebert Morris Jr, DO in OV> 04/02/25 1625 Narrative 04/02/2025 4:27 PM EDT [facility] [place] [address] CT Scan Report Signed Patient: Kinjal Penaloza MR#: [id number] : 1950 Acct:[id number] Age/Sex: 74 / F ADM Date: 04/02/25 Loc: CT Room: Type: [facility] Attending Dr: Tico Morley MD Copies to: Tico Morley MD Ordering Provider: Tico Morley MD Date of Service: 04/02/25 CT/CT abdomen pelvis wo con: flank and back pain CT ABDOMEN AND PELVIS WITHOUT INTRAVENOUS CONTRAST: CLINICAL HISTORY: Left flank pain for 2 months COMPARISON: CT abdomen and pelvis 05/09/2023 TECHNIQUE: Spiral images were obtained through the abdomen and pelvis without intravenous contrast. This CT exam was performed using one or more following dose reduction techniques: Automated exposure control, adjustment of the mA and/or kV according to patient size, or use of iterative reconstruction technique. FINDINGS: Lung Bases: [Mild bibasilar scarring. 4 mm nodule right lower lobe series 3 image 29 unchanged since 2022 suggesting a benign process.] Organs:Suboptimal evaluation due to lack of IV contrast. Liver gallbladder pancreas spleen all appear unremarkable. Adenomatous thickening involving the jejunum glands. Bilateral nephrolithiasis largest stone involving the right renal pelvis measuring 1.2 cm in greatest axial dimension. There appears be surrounding inflammatory changes suggestive of intermittent obstruction. No hydronephrosis is seen on today's study. Abdominal aorta appears normal in caliber. GI: Stomach is grossly unremarkable. Small bowel appears nondilated. Right hemicolectomy. Colonic diverticulosis.[ Pelvis:[Urinary bladder is grossly unremarkable. Uterus has been removed. No adnexal mass.] Peritoneum/Retroperitoneum:No free air free fluid or lymphadenopathy.[ Abd wall/Bones:Fat-containing ventral hernia. Osseous structures demonstrate degenerative change.[ CT/CT abdomen pelvis wo con Procedure Note Hebert Morris Jr., DO - 04/02/2025 [facility] Main [place] [address] [place] [address] CT Scan Report Signed Patient: Kinjal Penaloza EMR#: [id number] : 1950Acct:[id number] Age/Sex: 74 / FADM Date: 04/02/25 Loc: CT Room:Type: [facility] Attending Dr: Tico Morley MD Copies to: Tico Morley MD Ordering Provider: Tico Morley MD Date of Service: 04/02/25 CT/CT abdomen pelvis wo con: flank and backpain CT ABDOMEN AND PELVIS WITHOUT INTRAVENOUS CONTRAST: CLINICAL HISTORY: Left flank pain for 2 months COMPARISON: CT abdomen and pelvis 05/09/2023 TECHNIQUE: Spiral images were obtained through the abdomen and pelviswithout intravenous contrast. This CT exam was performed using one or more following dose reductiontechniques: Automated exposure control, adjustment of the mA and/or kV according to patientsize, or use of iterative reconstruction technique. FINDINGS: Lung Bases: [Mild bibasilar scarring. 4 mm nodule right lower lobe series3 image 29 unchanged since 2022 suggesting a benign process.] Organs:Suboptimal evaluation due to lack of IV contrast. Livergallbladder pancreas spleen all appear unremarkable. Adenomatous thickening involving the jejunum glands.Bilateral nephrolithiasis largest stone involving the right renal pelvis measuring1.2 cm in greatest axial dimension. There appears be surrounding inflammatory changes suggestiveof intermittent obstruction. No hydronephrosis is seen on today's study. Abdominal aortaappears normal in caliber. GI: Stomach is grossly unremarkable. Small bowel appears nondilated.Right hemicolectomy. Colonic diverticulosis.[ Pelvis:[Urinary bladder is grossly unremarkable. Uterus has been removed.No adnexal mass.] Peritoneum/Retroperitoneum:No free air free fluid or lymphadenopathy.[ Abd wall/Bones:Fat-containing ventral hernia. Osseous structuresdemonstrate degenerative change.[ CT/CT abdomen pelvis wo con IMPRESSION: Bilateral nephrolithiasis largest stone measuring 12 mm in greatest axialdimension. It appears to be surrounding inflammatory changes of the right renal pelvis suggestiveof intermittent obstruction. Colonic diverticulosis. Impression dictated by: Hebert Morris Jr., D.O. 04/02/2025 4:25 PM Dictation Location: [place] [address] Transcribed By: [facility] 04/02/25 1625 Dictated By: Hebert Morris Jr, DO 04/02/25 1622 Signed By: <Electronically signed by Hebert Morris Jr, DO inOV> 04/02/25 1625 Tico Morley MD IMG CT PROCEDURES Final Result * XR thoracic spine 2 views (03/29/2025 2:05 PM EDT) Anatomical Region Laterality Modality Spine, T-spine Radiographic Yvette ging 03/30/2025 9:41 AM EDT Impressions 03/30/2025 9:48 AM EDT No acute osseous findings. Other findings as discussed. ELECTRONICALLY SIGNED BY: Jaspal Ye MD Narrative 03/30/2025 9:48 AM EDT EXAMINATION/TECHNIQUE: XR RIBS 2 VIEWS RIGHT, XR THORACIC SPINE 2 VIEWS HISTORY: Fall. Persistent right-sided rib pain. Thoracic back pain. COMPARISON: None RESULT: Chest/ribs: No focal consolidation. No large pleural effusion. No pneumothorax. Grossly unremarkable cardiomediastinal silhouette with aortic vascular calcifications. Metallic densities projecting over the left chest wall. No distinct acute displaced rib fracture. See below for spine findings. Postsurgical changes right abdomen. Probable bilateral renal calculi. Thoracic spine: Mild S-shaped curvature. No evidence for traumatic malalignment. No evidence for acute fracture with the vertebral body heights grossly maintained. DISH. Mild to moderate endplate degenerative changes especially in the mid thoracic spine. Degenerative changes of the partially imaged lower cervical spine. Procedure Note Jaspal Ye MD - 03/30/2025 EXAMINATION/TECHNIQUE: XR RIBS 2 VIEWS RIGHT, XR THORACIC SPINE 2 VIEWS HISTORY: Fall. Persistent right-sided rib pain. Thoracic back pain. COMPARISON: None RESULT: Chest/ribs: No focal consolidation. No large pleural effusion. Nopneumothorax. Grossly unremarkable cardiomediastinal silhouette withaortic vascular calcifications. Metallic densities projecting over theleft chest wall. No distinct acute displaced rib fracture. See below forspine findings. Postsurgical changes right abdomen. Probable bilateralrenal calculi. Thoracic spine: Mild S-shaped curvature. No evidence for traumatic malalignment. Noevidence for acute fracture with the vertebral body heights grosslymaintained. DISH. Mild to moderate endplate degenerative changesespecially in the mid thoracic spine. Degenerative changes of thepartially imaged lower cervical spine. IMPRESSION: No acute osseous findings. Other findings as discussed. ELECTRONICALLY SIGNED BY: Jaspal Ye MD us Susan Grande LICENSED PHYSICAL THERAPIST IMG XR PROCEDURES Final Resu lt * XR ribs 2 views right (03/29/2025 2:05 PM EDT) Anatomical Region Laterality Modality Rib, Abdomen Right Radiographic Yvette ging 03/30/2025 9:41 AM EDT Impressions 03/30/2025 9:48 AM EDT No acute osseous findings. Other findings as discussed. ELECTRONICALLY SIGNED BY: Jaspal Ye MD Narrative 03/30/2025 9:48 AM EDT EXAMINATION/TECHNIQUE: XR RIBS 2 VIEWS RIGHT, XR THORACIC SPINE 2 VIEWS HISTORY: Fall. Persistent right-sided rib pain. Thoracic back pain. COMPARISON: None RESULT: Chest/ribs: No focal consolidation. No large pleural effusion. No pneumothorax. Grossly unremarkable cardiomediastinal silhouette with aortic vascular calcifications. Metallic densities projecting over the left chest wall. No distinct acute displaced rib fracture. See below for spine findings. Postsurgical changes right abdomen. Probable bilateral renal calculi. Thoracic spine: Mild S-shaped curvature. No evidence for traumatic malalignment. No evidence for acute fracture with the vertebral body heights grossly maintained. DISH. Mild to moderate endplate degenerative changes especially in the mid thoracic spine. Degenerative changes of the partially imaged lower cervical spine. Procedure Note Jaspal Ye MD - 03/30/2025 EXAMINATION/TECHNIQUE: XR RIBS 2 VIEWS RIGHT, XR THORACIC SPINE 2 VIEWS HISTORY: Fall. Persistent right-sided rib pain. Thoracic back pain. COMPARISON: None RESULT: Chest/ribs: No focal consolidation. No large pleural effusion. Nopneumothorax. Grossly unremarkable cardiomediastinal silhouette withaortic vascular calcifications. Metallic densities projecting over theleft chest wall. No distinct acute displaced rib fracture. See below forspine findings. Postsurgical changes right abdomen. Probable bilateralrenal calculi. Thoracic spine: Mild S-shaped curvature. No evidence for traumatic malalignment. Noevidence for acute fracture with the vertebral body heights grosslymaintained. DISH. Mild to moderate endplate degenerative changesespecially in the mid thoracic spine. Degenerative changes of thepartially imaged lower cervical spine. IMPRESSION: No acute osseous findings. Other findings as discussed. ELECTRONICALLY SIGNED BY: Jaspal Ye MD Susan Grande LICENSED PHYSICAL THERAPIST IMG XR PROCEDURES Final Resu lt * (ABNORMAL) Hemoglobin a1c with eag (02/23/2025 10:54 AM EDT) HgbA1C 5.9(H) 4.8 - 5.6 % [facility] Comment: Prediabetes: 5.7 - 6.4 Diabetes: >6.4 Glycemic control for adults with diabetes: <7.0 Est Avg Gluc eAG 123 mg/dL [facility] Blood Venous blood specimen / Unknown 02/23/2025 10:54 AM EDT 02/23/2025 Narrative [facility] - 02/24/2025 1:07 PM EDT Performed at: [address] [place] [id number] [place]: Saurabh Daley PhD, Phone: [phone] us Felipe Lopez LICENSED PHYSICAL THERAPIST LAB BLOOD ORDERABLES Final R esult [facility] * (ABNORMAL) Microalbumin / creatinine urine ratio (02/23/2025 10:54 AM EDT) Creat Ur 148.4 Not Estab. mg/dL [facility] Albumin Ur 253.0 Not Estab. ug/mL [facility] Alb/Creat Ratio Urine 170(H) 0 - 29 mg/g creat [facility] Comment: Normal: 0 - 29 Moderately increased: 30 - 300 Severely increased: >300 Urine Urine specimen obtained by clean catch procedure / Unknown 02/23/2025 10:54 AM EDT 02/23/2025 Narrative [facility] - 02/24/2025 1:07 PM EDT Performed at: [address] [place] [id number] Monument Carver: Saurabh Daley PhD, Phone: [phone] us Felipe Lopez LICENSED PHYSICAL THERAPIST LAB URINE ORDERABLES Final R esult [facility] * CBC (02/23/2025 10:54 AM EDT) WBC 8.3 3.4 - 10.8 x10E3/uL [facility] RBC 4.72 3.77 - 5.28 x10E6/uL [facility] Hgb 14.3 11.1 - 15.9 g/dL [facility] Hct 43.9 34.0 - 46.6 % [facility] MCV 93 79 - 97 fL [facility] MCH 30.3 26.6 - 33.0 pg [facility] MCHC 32.6 31.5 - 35.7 g/dL [facility] RDW 13.1 11.7 - 15.4 % [facility] Platelets 243 150 - 450 x10E3/uL [facility] Blood Venous blood specimen / Unknown 02/23/2025 10:54 AM EDT 02/23/2025 Narrative [facility] - 02/24/2025 1:07 PM EDT Performed at: 01 - [facility] [address], [address], [place], [place] [id number] Monument Carver: Gilma Rushing MD, Phone: [phone] Felipe Lopez LICENSED PHYSICAL THERAPIST LAB BLOOD ORDERABLES Final R esult Performing Organization Address [facility]/ZIP Co de Phone Number [facility] * (ABNORMAL) Lipid panel (02/23/2025 10:54 AM EDT) Cholesterol, Total 178 100 - 199 mg/dL [facility] Triglycerides 215(H) 0 - 149 mg/dL [facility] HDL Cholesterol 81 >39 mg/dL [facility] VLDL Cholesterol Joaquín 34 5 - 40 mg/dL [facility] LDL Chol Calc (NIH) 63 0 - 99 mg/dL [facility] Blood Venous blood specimen / Unknown 02/23/2025 10:54 AM EDT 02/23/2025 Narrative [facility] - 02/24/2025 1:07 PM EDT Performed at: 02 - [address] [id number] Monument Carver: Saurabh Daley PhD, Phone: [phone] Felipe Lopez LICENSED PHYSICAL THERAPIST LAB BLOOD ORDERABLES Final R esult Performing Organization Address [facility]/ZIP Co de Phone Number [facility] * (ABNORMAL) Comprehensive metabolic panel (02/23/2025 10:54 AM EDT) Glucose 103(H) 70 - 99 mg/dL [facility] BUN 17 8 - 27 mg/dL [facility] Creat 1.02(H) 0.57 - 1.00 mg/dL [facility] EGFR 58(L) >59 mL/min/1.7 3 [facility] BUN/Creat Ratio 17 12 - 28 [facility] Sodium 141 134 - 144 mmol/L [facility] Potassium 4.5 3.5 - 5.2 mmol/L [facility] Chloride 104 96 - 106 mmol/L [facility] Carbon Dioxide 24 20 - 29 mmol/L [facility] Calcium 9.5 8.7 - 10.3 mg/dL [facility] Protein Total 6.4 6.0 - 8.5 g/dL [facility] Albumin 4.4 3.8 - 4.8 g/dL [facility] Globulin Total 2.0 1.5 - 4.5 g/dL [facility] Bili Total 0.3 0.0 - 1.2 mg/dL [facility] Alk Phosphatase 69 44 - 121 IU/L [facility] AST 43 15 - 59 IU/L [facility] ALT 41(H) 0 - 35 IU/L [facility] Blood Venous blood specimen / Unknown 02/23/2025 10:54 AM EDT 02/23/2025 Narrative [facility] - 02/24/2025 1:07 PM EDT Performed at: 01 - [place] [address], [address], [place], [place] [id number] Monument Carver: Gilma Rushing MD, Phone: [phone] us Felipe Lopez LICENSED PHYSICAL THERAPIST LAB BLOOD ORDERABLES Final R esult [facility] * GA ARTHROCENTESIS ASPIR&/INJ MAJOR JT/BURSA W/O US (01/26/2025 1:16 PM EDT) Narrative Lorenza Velazquez MA - 01/26/2025 1:16 PM EDT Lorenza Velazquez MA 03/30/2025 6:33 PM L Inj/Asp: L knee on 01/26/2025 1:16 PM Indications: pain Details: 22 G needle Medications: 16 mg hylan 16 MG/2ML Consent was given by the patient. us Elijah Chamberlain DO IN CLINIC/BEDSIDE ORDERABLES Fi nal Result * XR knee 1 or 2 views left (01/26/2025 12:47 PM EDT) Anatomical Region Laterality Modality Lower Extremities, Knee Left Radiogra phic Imaging Narrative 03/30/2025 6:33 PM EDT Imaging Result: Three views, bilateral PA weight-bearing, sunrise, lateral of the left knee(s) taken 11/09/2024 and lateral view right knee taken today and saved to the permanent medical record are reviewed. Near complete loss lateral joint space right knee and medial joint space left knee with marginal osteophytes. Moderate PF arthritis. Elijah Chamberlain DO IMG XR PROCEDURES Final Result * Bilateral screening mammogram with tomosynthesis (07/02/2024 [...] Lakeshia Benítez M.D.07/02/2024 3:00 PM Dictation Location: [facility] Transcribed By: [facility] 07/02/24 1500 Dictated By: Lakeshia Benítez MD 07/02/24 1454 Signed By: <Electronically signed by MD Lakeshia Benítez in OV> 07/02/24 1500 Narrative 07/02/2024 3:02 PM EDT [facility] Main [place] [address] [place] [address] Mammography Report Signed Patient: Kinjal Penaloza MR#: [id number] : 1950 Acct:[id number] Age/Sex: 74 / F ADM Date: 07/01/23 Loc: Room: Type: [facility] RCR Attending Dr: Nikki Brunner MD [...] Procedure Note Radiology, Radiologist, MD - 07/02/2024 [facility] Main [place] [address] [place] [address] Mammography Report Signed Patient: Kinjal Penaloza EMR#: [id number] : 1950Acct:[id number] Age/Sex: 74 / FADM Date: 07/01/23 Loc: Room:Type: [facility] Attending Dr: Nikki Brunner MD Copies [...] Lakeshia Benítez M.D.07/02/2024 3:00 PM Dictation Location: [facility] Transcribed By: [facility] 07/02/24 1500 Dictated By: Lakeshia Benítez MD 07/02/24 1454 Signed By: <Electronically signed by MD Lakeshia Benítez in OV> 07/02/24 1500 Nikki Brunner MD IMG BI PROCEDURES Final Result * Colonoscopy (05/15/2022 12:00 PM EDT) Anatomical Region Laterality Modality Endoscopy 05/15/2022 12:0 0 PM EDT Narrative 05/15/2022 12:00 PM EDT PERFORMED [place] [facility] LOCATION:[id number] Procedure Note CONVERSION, GENERIC - 01/16/2023 PERFORMED AT [facility] LOCATION:[id number] Johnny Last DO ENDOSCOPY PROCEDURE ORDERABLES Final Result from Last 3 Months or Most Recently Relevant to Health Maintenance Insurance [employer] MED[employer]ARE ADVANTAGE Advance Directives * Full Code (Latest Code Status on File) Date Activated Date Inactivated Comments 06/02/2024 3:06 PM * Full Code Date Activated Date Inactivated Comments 04/30/2023 2:07 PM 06/02/2024 3:06 PM Care Teams Hull Builder Relationship Specialty Start Date End Date Ariel Kyle Concepcion DO [address] [place] [address] PCP - [employer] 09/02/22 Tico Morley MD [address] [place] [address] PCP - General Internal Medicine 04/01/25 Demetrice Montgomery DO [address] [place] [address] Referring Physician Obstetrics and Gynecology 04/30/23 Mandeep Nj MD [address] [place] [address] Referring Physician Ophthalmology 04/30/23 RIRI BENAVIDES [address] [place] [address] Referring Physician General Surgery 04/30/23 Felipe Lopez LICENSED PHYSICAL THERAPIST [address] [place] [address] Referring Physician Internal Medicine 12/28/24 Johnny Field DO [address] [place] [address] Otolaryngology 12/28/24
--- OUTSIDE RECORDS SUMMARY | 2025-04-26 12:24 | XMS_ITS | Encounter Summary ---
Author Organization [facility] Address [address] [facility] [place] [address] Care Team Providers Care Spinneret Cleaner Name Role Phone Kyle George DO Unavailable Kyle George DO Primary Care Provider Demetrice Montgomery DO Unavailable [phone] Mandeep Nj MD Unavailable Riri Benavides MD Unavailable [phone] Felipe Lopez HAND DRY CLEANER Unavailable Johnny Field DO Unavailable Tico Morley MD Primary Care Provider [phone] Encounter Details Date Type Department Care Team (Late st Contact Info) Description 12/13/2023 [facility] [address] [facility] [address] [place] [phone] A, Unknown Practice [address] [place] [phone] Social History Tobacco Use Types Packs/Day Years Used Date Smoking Tobacco: Former Cigarettes 0 09/02/1974 - 09/02/2017 Passive Smoke Exposure: Past Smokeless Tobacco: Never Comments:Last smoked : 3-[address] [facility] Moderate cigarette smoker 10-19 cigs / day Alcohol Use Standard Drinks/Week Comments Yes 1 (1 standard drink = 0.6 oz pure alcohol) caffeine intake: 2-3 cups per day ; tea 2 glasses AUDIT-C Answer Date Recorded Q1: How often do you have a drink containing alc ohol? 2-4 times a month 11/12/2023 Q2: How many drinks containi ng alcohol do you have on a typical day when you are drinking? 1 or 2 11/12/2023 Q3: How often do you have si x or more drinks on one occasion? Weekly 11/12/2023 PHQ-2 Answer Date Recorded Patient Health Questionnaire-2 Score 0 11/12/2023 Comments No Sex and Gender Information Value [...] Dermatology [address] [place] [address] Deb Dwyer MD [address] [place] [address] 09/14/2025 1:15 PM EST Office Visit [facility] [address] [place] [phone] 12/28/2025 10:00 AM EDT Clinical Support [facility] [address] [facility] [place] [address] Luann Gross, [facility] [address] [place] [address] 12/31/2025 10:00 AM EDT Office Visit [facility] Otol[facility] [address] [place] [phone] Johnny Field DO [address] [place] [address] 04/18/2026 1:15 PM EDT Office Visit [facility] [address] [phone] Demetrice Montgomery DO [address] [phone] documented as of this encounter Procedures Procedure Name Priority Date/Time Associated Diagnosis Comments MAMMO 3D,BILATERAL SCREENING MAMMOGRAM WITH TOMOSY Routine 12/13/2023 10:48 AM EDT documented in this encounter Results * MAMMO 3D,BILATERAL SCREENING MAMMOGRAM WITH TOMOSY (12/13/2023 10:48 AM EDT) Anatomical Region Laterality Modality Radiographic Yvette ging us Unknown Practice A IMG XR PROCEDURES Final Resul t documented in this encounter Visit Diagnoses Not on filedocumented in this encounter Care Teams Spinneret Cleaner Relationship Specialty Start Date End Date Kyle George DO [address] [place] [address] PCP - [employer] 09/02/22 Kyle George DO [address] [address] PCP - General Internal Medicine 04/24/23 03/31/25 Tico Morley MD [address] [place] [address] PCP - General Internal Medicine 04/01/25 Demetrice Montgomery DO [address] [place] [address] Referring Physician Obstetrics and Gynecology 04/30/23 Mandeep Nj MD [address] [place] [address] Referring Physician Ophthalmology 04/30/23 RIRI BENAVIDES [address] [place] [address] Referring Physician General Surgery 04/30/23 Felipe Lopez NP [address] [place] [address] Referring Physician Internal Medicine 12/28/24 Johnny Field DO [address] [place] [address] Otolaryngology 12/28/24 documented as of this encounter
--- NOTE | 2025-04-26 12:27 | ECG_ITS ---
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
--- NOTE | 2025-04-26 12:54 | PM.PRESUREVA ---
History of Present Illness History of Present Illness Chief complaint: Right Kidney Stone Narrative: Patient presents for presurgical testing accompanied by her . Please see HPI from Dr. Covington dated April 23, 2025. Review of Systems ROS Narrative Please see ROS from Dr. Covington dated April 23, 2025. Please note, patient admits to dyspnea on exertion. [facility] Medical History (Updated 04/26/25 @ 12:55 by Emily Giang NP) Elevated blood pressure reading without diagnosis of hypertension ?R03.0 - Elevated blood-pressure reading, without diagnosis of hypertension (ICD-10) Cataract ?H26.9 - Unspecified cataract (ICD-10) Glaucoma ?H40.9 - Unspecified glaucoma (ICD-10) Hypothyroidism ?E03.9 - Hypothyroidism, unspecified (ICD-10) Back pain ?M54.9 - Dorsalgia, unspecified (ICD-10) Snores ?R06.83 - Snoring (ICD-10) S/P extracorporeal shock wave therapy ?Z98.890 - Other specified postprocedural states (ICD-10) Heart murmur ?R01.1 - Cardiac murmur, unspecified (ICD-10) Rheumatic heart disease ?I09.9 - Rheumatic heart disease, unspecified (ICD-10) Rheumatic fever ?I00 - Rheumatic fever without heart involvement (ICD-10) Hernia ?K46.9 - Unspecified abdominal hernia without obstruction or gangrene (ICD-10) Hyperlipidemia ?E78.5 - Hyperlipidemia, unspecified (ICD-10) Cystocele Cataracts, bilateral ?H26.9 - Unspecified cataract (ICD-10) Breast cancer ?C50.919 - Malignant neoplasm of unspecified site of unspecified female breast (ICD-10) Benign neoplasm of colon ?D12.6 - Benign neoplasm of colon, unspecified (ICD-10) Basal cell carcinoma ?C44.91 - Basal cell carcinoma of skin, unspecified (ICD-10) Adnexal mass ?N94.89 - Other specified conditions associated with female genital organs and menstrual cycle (ICD-10) Kidney stones ?N20.0 - Calculus of kidney (ICD-10) Surgical History (Updated 04/26/25 @ 12:43 by Emily Giang NP) S/P cataract extraction and insertion of intraocular lens ?Z98.49 - Cataract extraction status, unspecified eye (ICD-10) ?Z96.1 - Presence of intraocular lens (ICD-10) Hx of tonsillectomy ?Z90.89 - Acquired absence of other organs (ICD-10) S/P arthroscopic knee surgery ?Z98.890 - Other specified postprocedural states (ICD-10) History of hysterectomy ?Z90.710 - Acquired absence of both cervix and uterus (ICD-10) H/O umbilical hernia repair ?Z98.890 - Other specified postprocedural states (ICD-10) ?Z87.19 - Personal history of other diseases of the digestive system (ICD-10) H/O colonoscopy ?Z98.890 - Other specified postprocedural states (ICD-10) History of cholecystectomy ?Z90.49 - Acquired absence of other specified parts of digestive tract (ICD-10) H/O breast biopsy ?Z98.890 - Other specified postprocedural states (ICD-10) H/O oophorectomy History of appendectomy ?Z90.49 - Acquired absence of other specified parts of digestive tract (ICD-10) S/P breast lumpectomy ?Z98.890 - Other specified postprocedural states (ICD-10) H/O colectomy ?Z90.49 - Acquired absence of other specified parts of digestive tract (ICD-10) Family History (Updated 04/26/25 @ 12:43 by Emily Giang NP) Other Family history of heart disease Family history of myocardial infarction Social History (Updated 04/26/25 @ 12:38 by Emily Giang NP) Within the past year, how often did you have a drink containing alcohol: monthly or less Smoking status: Former smoker Non-prescribed substance use: denies use Highest level of school completed/degree received: some college, no degree Meds Home Medications and Allergies Home Medications ?Medication ?Instructions ?Recorded ?Confirmed ?Type alendronate 70 mg tablet 70 mg PO QWEEK 04/26/25 04/26/25 History allopurinol 100 mg tablet 100 mg PO DAILY 04/26/25 04/26/25 History atorvastatin 20 mg tablet 20 mg PO DAILY 04/26/25 04/26/25 History levothyroxine 75 mcg tablet 75 mcg PO DAILY 04/26/25 04/26/25 History (Synthroid) potassium bicarbonate-citric acid 25 meq PO DAILY 04/26/25 04/26/25 History 25 mEq effervescent tablet (Effer-K) tamoxifen 20 mg tablet 20 mg PO DAILY 04/26/25 04/26/25 History venlafaxine 75 mg capsule,extended 75 mg PO DAILY 04/26/25 04/26/25 History release 24 hr Allergies Allergy/AdvReac Type Severity Reaction Status Date / Time Sulfa (Sulfonamide Allergy Unknown Verified 04/26/25 12:34 Antibiotics) Exam Narrative Exam Narrative: Constitutional: Awake, alert, comfortable, well-appearing, nontoxic, interactive, vital signs as charted Head: Normocephalic, atraumatic Neck: Supple, normal appearance, normal range of motion, no meningeal signs, no lymphadenopathy Respiratory: No respiratory distress, breath sounds clear Cardiovascular: Regular rate and rhythm, strong and regular heart tones Abdomen: Nontender, normal bowel sounds, soft, no CVA tenderness Musculoskeletal: Normal gait, no swelling or edema Skin: No rashes or induration, no lesions, only visible skin inspected Neuro: No neurological deficits, normal sensation Psychiatric: Oriented ?3, normal affect Assessment and Plan Assessment and Plan (1) Kidney stones: Plan Cystoscopy, right ureteroscopy, retrograde pyelogram, laser lithotripsy, right stent placement scheduled with Dr. Covington April 28, 2025.
[2025-04-26 13:04] LABS: Hematocrit 42.9 % (36.0-48.0); Hemoglobin 14.2 g/dL (12.0-16.0); Immature Granulocytes Abs Auto 0.02 10^3/uL (0.00-0.03); Immature Granulocytes Pct Auto 0.3 % (0.0-0.5); Lymphocytes Absolute Auto 2.3 10^3/uL (1.2-3.8); Mean Corpuscular HGB Conc 33.1 g/dL (29.9-35.2); Mean Corpuscular Hemoglobin 30.7 pg (26.7-34.0); Mean Corpuscular Volume 92.9 fL (81.0-99.0); Platelet Count 224 10^3/uL (150-450); Red Blood Count 4.62 10^6/uL (4.20-5.40); White Blood Count 7.1 10^3/uL (4.0-11.0)
[2025-04-26 13:26] LABS: INR 1.01; Partial Thromboplastin Time 25.0 sec (22.3-36.2); Prothrombin Time 10.7 sec (9.0-11.6)
[2025-04-26 13:36] LABS: Anion Gap 12.8; Blood Urea Nitrogen 13.0 mg/dL (7.0-18.0); Calcium 9.3 mg/dL (8.5-10.1); Carbon Dioxide 28.9 mmol/L (21.0-32.0); Chloride 106 mmol/L (98-107); Estimated GFR (African America >60 (>=60 mL/min/1.73m^2); Estimated GFR (Non-African Ame 59 (>=60 mL/min/1.73m^2); Glucose 92 mg/dL (74-106); Potassium 4.7 mmol/L (3.5-5.1); Sodium 143 mmol/L (136-145)
== END 2025-04-26 12:19 | disposition home or self-care (01) ==
LOC: PST 12:21
PROVIDERS: PCP Internal Medicine; Visit Provider Urology
DX: Z01.810 Encounter for preprocedural cardiovascular examination (principal); Z01.812 Encounter for preprocedural laboratory examination; Z01.818 Encounter for other preprocedural examination; N20.0 Calculus of kidney
CPT/HCPCS: 80048; 85025; 85610; 85730; 93005; G0463

== ENCOUNTER 2025-04-28 12:19 | Day surgery (SDC) | payer MEDICARE, SELFPAY ==
[2025-04-26 12:53] VITALS: BP 160/85; PULSE 73; TEMP 36.2; O2SAT 99; BMI 31.4
[2025-04-28] VITALS (14 sets, daily range): BP systolic 139–201; BP diastolic 84–108; PULSE 74–92; TEMP 36.2–36.3; O2SAT 95–99; BMI 31.4
[2025-04-28] MEDS: CEFAZOLIN SODIUM 2 GM/50 ML D5W PREMIX IV (14:15)
[2025-04-28] MEDS: IOHEXOL 300 MG/ML - 50 ML BTL INJ (15:22)
--- NOTE | 2025-04-28 15:40 | PM.URSON ---
Urology Surgery Operative Note Operative Note Procedure Date: 04/28/25 Time Out Performed: yes Pre-op Diagnosis: Right kidney stone Post-op Diagnosis: same as pre-op Procedures performed: Cystoscopy, right retrograde pyelogram, ureteroscopy laser lithotripsy/stone extraction, stent placement Anesthesia: General-LMA (Dr. Faulkner) Primary Surgeon: Zhane Covington Complications: none Estimated blood loss (mL): 0 Findings: 1+ trabeculated bladder R RPG- filling defect in renal pelvis with mild hydronephrosis. Crystalized 1.5 cm yellow renal pelvis stone, hard interior underwent combination laser lithotripsy fragmenting and dusting, stone extraction. Sub-mm fragments remained Specimens: right kidney stone Drains: 6Fr x 24 cm JJ right ureteral stent Incision: none Indications for Procedures: 74 year old female recently diagnosed with 1.5 x 1.2 cm right renal pelvis stone with inflammation and severe renal colic presents for treatment after evaluation in clinic. After discussion of risks/benefits of management options, the patient elected to proceed with cystoscopy, right retrograde pyelogram, ureteroscopy with laser lithotripsy/stone extraction, ureteral stent placement under general anesthesia. Risks were discussed including but not limited to bleeding, pain, infection, damage to surrounding structures, inability to treat the stone/place a stent, and need for additional procedures. The patient understands the stent is not permanent and needs to be removed or exchanged within 3 months to prevent encrustation, infection, invasive procedures and/or permanent renal damage. Detailed description of Procedure: After informed consent was obtained, the patient was brought to the operating room and transferred onto the operating table in supine position. Sequential compression devices were placed on bilateral lower extremities. The patient received the appropriate dose of preoperative IV antibiotics and general anesthesia LMA was induced. They were positioned in modified dorsolithotomy with the appropriate pressure points padded, prepped, and draped in the usual sterile fashion for this procedure. An operative safety timeout was performed confirming the patient's identity, laterality and procedure, and all present agreed to proceed. I began by inserting a 22 Guatemalan rigid cystoscope with 30 degree lens into the patient's urethra and bladder without difficulty. There were no bladder tumors, lesions, stones or foreign bodies. Bilateral ureteral orifices were orthotopic and patent. I turned my attention to the right ureteral orifice and a 5- Guatemalan open-ended catheter was inserted into the ureteral orifice and dilute contrast was injected for retrograde pyelogram with findings as above. A hybrid wire was inserted into the ureter up to the renal pelvis confirmed on fluoroscopy. An 11/13 Guatemalan by 36 cm ureteral access sheath was inserted over the wire in a sequential fashion to gain access to the renal pelvis. Next a flexible ureteroscope was inserted through the sheath and advanced to the renal pelvis until the stone was reached.A 275 ?m thulium laser fiber was used to break the stone into fragments which were then removed with a 1.8 tipless nitinol basket. Remaining smaller fragments were popcorned and dusted into sub-mm pieces. After the stone was adequately treated, a full renoscopy was performed confirming no significant residual stones or fragments remained. Contrast was injected to assist with mapping for the renoscopy. The wire was reinserted and a pull down ureteroscopy was performed confirming no stones remained in the ureter. Contrast was injected for retrograde pyelogram confirming no extravasation of contrast, filling defects or hydronephrosis. The wire was backloaded through the cystoscope and 6 Fr x 24 cm JJ ureteral stent was advanced over the wire, noting adequate curl in the renal pelvis and bladder on fluoroscopic and direct visualization. The bladder was drained and inspected one final time to ensure adequate position of stent and no undue trauma to the bladder was done. The stones were sent for pathology and the cystoscope was removed. The patient tolerated the procedure well without complication. The patient was awakened from anesthesia and sent to PACU in stable condition. Plan: Discharge home with stent pain medications. Follow up next week for in-office cystoscopy, stent removal. Other Provider present: No Post Operative care instructions: See discharge instructions Attending Doc Confirm Attending Attestation: Yes
== END 2025-04-28 16:37 | disposition home or self-care (01) ==
LOC: SURGOUT 12:20
PROVIDERS: PCP Internal Medicine; Visit Provider Urology
PROC: (CPT 52356; principal; 2025-04-28 14:00)
DX: N20.0 Calculus of kidney (principal); Z90.710 Acquired absence of both cervix and uterus; Z90.49 Acquired absence of other specified parts of digestive tract; Z87.891 Personal history of nicotine dependence; E03.9 Hypothyroidism, unspecified; Z85.3 Personal history of malignant neoplasm of breast
CPT/HCPCS: 52356; 36415; 74420; 82365; 99999; J0690; J1100; J1885; J2250; J2371; J2405; J2704; J3010; Q9967